=== PATIENT | female | born 1945 | race Caucasian/White ===

== ENCOUNTER 2018-09-09 19:02 | Inpatient (IN) | payer MEDICARE ==
[~2018-09-09] VITALS: Ht 157.5 cm; Wt 109.8 kg
--- NOTE | ~2018-09-09 | EEG ---
[address] [address] EEG STUDY REPORT Name: QIANA DRAKE Room: [address] IN M.R.#: [id number] Admission: 09/09/18 Attend Phys: Orion Leon MD Discharge: Date of : 47 Report #: [id number] THIS REPORT FOR: //name// CC: Orion Maciel DATE OF EE09/11/2018 This patient is having paresthesias, which are episodic. EEG is being done to evaluate the possibility of seizure. EEG was done by placing the electrode by standard 10-20 system of electrode placement. Both referential and sequential montages were used for recording. Background activity in this patient's EEG is about 9 Hz and 30 microvolt. It is a symmetrical activity. The patient went to sleep that is associated with bilaterally symmetrical sleep spindle and vertex sharp waves. Amplitude is slightly asymmetrical, but slightly higher on the right side, but that is considered a physiological variation. Throughout the record, no active epileptiform activity was noticed. IMPRESSION: This patient's EEG is unremarkable. By: [id number]-Paul Avendano MD /nt
[~2018-09-09 19:02] MED LIST: ASPIR 8181 MG PO; ATORVASTATIN CA40 MG PO; LEVAQUIN 500 M500 M2 PO; LOPRESSOR50 PO; NITROGLYCERIN0.4 MG SUBLING; PREDNISONE 10 M10 MG PO; VENTOLIN HFA 1818 GM INH; VITAMINS A & D1 EACH PO
[2018-09-09] MEDS ORDERED: LISINOPRIL20 MG PO (19:11)
[2018-09-09] MEDS ORDERED: LOVASTATIN 20 M20 MG PO (19:11)
[2018-09-09 19:12] VITALS: BP 170/111; BP 224/111
[2018-09-09 19:43] LABS: POC CA IONIZED 4.7 mg/dL (4.5-5.3); POC CREATININE 0.8 mg/dL (0.6-1.3); POC POTASSIUM 3.5 mmol/L (3.5-4.9)
[2018-09-09 19:45] LABS: ABSOLUTE EOSINOPHILS 0.1 thou/uL (0.0-0.7); ABSOLUTE LYMPHOCYTES 1.2 thou/uL (0.8-5.3); ABSOLUTE MONOCYTES 0.3 thou/uL (0.0-1.2); BASOPHILS 0.7 %; EOSINOPHILS 1.6 %; HEMATOCRIT 44.6 % (37.0-47.0); HEMOGLOBIN 14.9 gm/dL (12.0-15.0); LYMPHOCYTES 26.8 %; MCH 29.7 pg (26.0-34.0); MCHC 33.5 g/dL (28.0-37.0); MCV 88.8 fL (80.0-100.0); MONOCYTES 6.7 %; MPV 9.6 fl. (7.2-11.1); NUCLEATED RBCS 0 /100WBC; PLATELET COUNT* 174 thou/uL (150-400); POLYS 64.2 %; RBC 5.03 mil/uL (4.20-5.00); RDW-CV 14.1 % (10.5-14.5); WBC 4.6 thou/uL (4.0-11.0)
[2018-09-09 19:53] LABS: ANION GAP 10 mmol/L (7-16); APTT 28.9 Seconds (25.0-31.3); BUN 13 mg/dL (7-18); CALCIUM 9.7 mg/dL (8.5-10.1); CHLORIDE 100 mmol/L (98-107); CO2 28 mmol/L (21-32); CREATININE 0.9 mg/dL (0.6-1.3); GLUCOSE 146 mg/dL (70-99); POTASSIUM 3.6 mmol/L (3.5-5.1); PROTIME 10.3 Seconds (9.20-11.50); SODIUM 138 mmol/L (136-145)
[2018-09-09 20:00] LABS: ALBUMIN 3.7 g/dL (3.4-5.0); ALKALINE PHOSPHATASE 163 U/L (46-116); SGOT 163 U/L (15-37); SGPT 145 U/L (30-65); TOTAL BILIRUBIN 0.4 mg/dL (<0.1-1.0); TOTAL PROTEIN 8.5 g/dL (6.4-8.2); TROPONIN-I LEVEL <0.06 ng/mL (<0.06)
[2018-09-09 22:00] VITALS: BP 186/63
[2018-09-09 22:13] VITALS: BP 134/53
[2018-09-10 03:30] LABS: ALKALINE PHOSPHATASE 132 U/L (46-116); ANION GAP 7 mmol/L (7-16); BUN 12 mg/dL (7-18); CALCIUM 8.7 mg/dL (8.5-10.1); CHLORIDE 101 mmol/L (98-107); CHOLESTEROL 232 mg/dL (<200); CO2 29 mmol/L (21-32); CREATININE 0.9 mg/dL (0.6-1.3); GLUCOSE 169 mg/dL (70-99); HDL CHOLESTEROL 34 mg/dL (>40); LDL CHOLESTEROL 170 mg/dL (<100); POTASSIUM 3.8 mmol/L (3.5-5.1); SGOT 118 U/L (15-37); SGPT 113 U/L (30-65); SODIUM 137 mmol/L (136-145); TC:HDL 6.8 Ratio (Not establshd); TOTAL BILIRUBIN 0.3 mg/dL (<0.1-1.0); TOTAL PROTEIN 6.4 g/dL (6.4-8.2); TRIGLYCERIDE 140 mg/dL (<150); VLDL 28 mg/dL (<40)
[2018-09-10 03:31] LABS: SERUM ASSESSMENT CLEAR
[2018-09-10 04:00] VITALS: BP 113/54
[2018-09-10 07:59] VITALS: BP 166/76
--- NOTE | 2018-09-10 10:25 | EKG ---
[place] [address] ELECTROCARDIOGRAM REPORT Name: NOELLEQIANA KAY Room: [place] [address] ADM IN .R.#: [id number] Admission: 09/09/18 Attend Phys: Orion Leon MD Discharge: Date of : 47 Report #: [id number] THIS REPORT FOR: //name// [facility] ED Test Date: 2018-09-09 Test Time: 19:12:38 Pat Name: QIANA DRAKE Department: Room: [place] [address] Gender: F Office Rental Clerk: REECE : 1945 Requested By: Yoan Minor Order Number: [id number] Reading MD: Melo Huff Measurements Intervals [place] Rate: 93 P: 52 [place]: 211 QRS: 14 QRSD: 106 T: 101 QT: 368 QTc: 458 Interpretive Statements Sinus rhythm Ventricular premature complex LVH with secondary repolarization abnormality Inferior infarct, old Compared to ECG 03/03/2015 07:37:56 Ventricular premature complex(es) now present T-wave abnormality no longer present Possible ischemia no longer present Prolonged QT interval no longer present Electronically Signed On 09-10-2018 10:25:21 RADIO PRODUCER by Melo Hfuf [email or web address] <ELECTRONICALLY SIGNED> By: Melo Huff MD, FACC 09/10/18 1025 11 11 Melo Huff MD, FACC /EPI
[2018-09-10] MEDS ORDERED: MINOCIN50 MG PO (14:37)
[2018-09-10] MEDS ORDERED: LIPITOR 20 MG T20 M1 PO (14:38)
[2018-09-10 14:39] VITALS: BP 166/76
[2018-09-10 15:20] VITALS: BP 177/91
[2018-09-11 09:10] LABS: GLYCOHEMOGLOBIN (HGB A1C) 6.3 % (4.8-5.6)
--- NOTE | 2018-09-11 17:48 | CON ---
[address] [address] CONSULTATION Name: QIANA DRAKE Room: [address] IN M.R.#: [id number] Admission: 09/09/18 Attend Phys: Orion Leon MD Discharge: 09/10/18 Date of : 47 Report #: [id number] THIS REPORT FOR: //name// CC: Orion Maciel DATE OF SERVICE: 09/10/2018 NEUROLOGY CONSULT HISTORY OF PRESENT ILLNESS: The patient states that yesterday she had several episodes of tingling of the left hand and tongue. She had approximately 3 of these. Then, when she had come to the Emergency Room, she had an intense episode of tingling involving the entire left side of her body. Overall, the patient had approximately 4 or 5 of these episodes. In the Emergency Room, the patient's blood pressure was noted to be elevated. Her blood pressure was as high as 224/111. Today, the patient states that she is back to normal. Yesterday, she had a CT scan of the head demonstrating scattered microvascular disease and a CTA of the head and neck, which demonstrated atherosclerotic changes, more so on the right than the left. The patient also had high-grade stenosis of the left internal carotid artery. PAST MEDICAL HISTORY: Coronary artery disease, congestive heart failure, myocardial infarction, hypertension, hyperlipidemia. PAST SURGICAL HISTORY: Cardiac stents, cholecystectomy. MEDICATIONS: At home, aspirin 81 mg daily, lovastatin 20 mg daily, lisinopril 15 mg daily. ALLERGIES: None. PHYSICAL EXAMINATION: VITAL SIGNS: Temperature 36.7, pulse rate 68, respiratory rate 18, blood pressure 166/76, bedside pulse oximetry 92% on 2 liters nasal cannula. NEUROLOGIC: Cranial nerves 2-12 are grossly intact. Motor exam demonstrates symmetrical strength in all 4 extremities with tone and bulk normal. Reflexes are symmetrical throughout. Coordination demonstrates intact yepyyi-oh-vzni. Gait was not tested. LABORATORY DATA: Hematology: White blood cell count 4.6, hemoglobin 14.9, hematocrit 44.6, platelet count 174,000. INR 1. Urinalysis was not done. Chemistry: Sodium 137, potassium 3.8, chloride 101, carbon dioxide 29, BUN 12, creatinine 0.7, GFR 62, glucose 169. Hemoglobin A1c pending. Calcium 8.7, [place] [address] CONSULTATION Name: QIANA DRAKE Room: [address]#: [id number] Admission: 09/09/18 Attend Phys: Orion Leon MD Discharge: 09/10/18 Date of : 47 Report #: [id number] total bilirubin 0.3, AST 118, ALT 113, alkaline phosphatase 132, total protein 6.4, albumin 3. Triglycerides 140, cholesterol 232, LDL cholesterol 170, HDL cholesterol 34. IMAGING STUDIES: As noted in the history. IMPRESSION: This patient has had several episodes consistent with transient ischemic attack. She has left carotid artery stenosis, which unfortunately does not correlate with her symptoms. For this patient I would recommend an MRI of the head along with MRA of the head and neck to see if she has perhaps a stroke on the right side, for example, in the parietal lobe. These episodes of paresthesias could possibly be seizures. An EEG has been ordered. At this point, I would not make any changes to the patient's medication. Depending upon the results of the MRA, the patient may need a Vascular Surgery consult. I thank you for your kind referral of this patient. <ELECTRONICALLY SIGNED> By: Sherrie Ram DO 09/11/18 1748 1009 2110Sherrie Ram DO /nt
== END 2018-09-10 15:27 | disposition home or self-care (01) | DRG 69 ==
LOC: M.ERS 19:02 → M.2W 20:35 → M.TBA-ER 20:35 → M.2W 22:55
PROVIDERS: Emergency Medicine Emergency Medical Services; ADMIT Internal Medicine
DX: G45.9 Transient cerebral ischemic attack, unspecified (principal); I16.1 Hypertensive emergency; Z68.41 Body mass index [BMI] 40.0-44.9, adult; E66.01 Morbid (severe) obesity due to excess calories; E78.00 Pure hypercholesterolemia, unspecified; I50.9 Heart failure, unspecified; I11.0 Hypertensive heart disease with heart failure; G47.30 Sleep apnea, unspecified; R73.9 Hyperglycemia, unspecified; I25.10 Atherosclerotic heart disease of native coronary artery without angina pectoris; Z71.3 Dietary counseling and surveillance; I25.2 Old myocardial infarction; Z95.5 Presence of coronary angioplasty implant and graft; Z87.891 Personal history of nicotine dependence; Z90.49 Acquired absence of other specified parts of digestive tract; Z79.82 Long term (current) use of aspirin; Z79.899 Other long term (current) drug therapy

== ENCOUNTER 2018-10-28 20:56 | Emergency (ER) | payer MEDICARE ==
[~2018-10-28] VITALS: Ht 157.5 cm; Wt 105.2 kg
[~2018-10-28 20:56] MED LIST changes: +LIPITOR 20 MG T20 M1 PO; +LISINOPRIL20 MG PO; +LOVASTATIN 20 M20 MG PO; +MINOCIN50 MG PO
[2018-10-28 21:37] LABS: ABSOLUTE EOSINOPHILS 0.1 thou/uL (0.0-0.7); ABSOLUTE LYMPHOCYTES 0.9 thou/uL (0.8-5.3); ABSOLUTE MONOCYTES 0.3 thou/uL (0.0-1.2); ABSOLUTE NEUTROPHILS 2.5 thou/uL (1.6-8.1); BASOPHILS 1.3 %; EOSINOPHILS 2.4 %; HEMATOCRIT 42.2 % (37.0-47.0); HEMOGLOBIN 14.3 gm/dL (12.0-15.0); LYMPHOCYTES 24.6 %; MCHC 33.8 g/dL (28.0-37.0); MCV 88.6 fL (80.0-100.0); MONOCYTES 6.6 %; NUCLEATED RBCS 0 /100WBC; PLATELET COUNT* 141 thou/uL (150-400); POLYS 65.1 %; RBC 4.76 mil/uL (4.20-5.00); RDW-CV 14.4 % (10.5-14.5); WBC 3.9 thou/uL (4.0-11.0)
[2018-10-28 21:50] LABS: ANION GAP 3 mmol/L (7-16); BUN 15 mg/dL (7-18); CALCIUM 9.1 mg/dL (8.5-10.1); CHLORIDE 101 mmol/L (98-107); CO2 32 mmol/L (21-32); CREATININE 0.9 mg/dL (0.6-1.3); GLUCOSE 175 mg/dL (70-99); POTASSIUM 4.8 mmol/L (3.5-5.1); SODIUM 136 mmol/L (136-145)
[2018-10-28 21:53] LABS: PROTIME 10.2 Seconds (9.20-11.50)
[2018-10-28 22:01] LABS: ALBUMIN 3.4 g/dL (3.4-5.0); ALKALINE PHOSPHATASE 194 U/L (46-116); NT-PRO BRAIN NAT PEPTIDE 253 pg/mL (<300); SGOT 104 U/L (15-37); SGPT 97 U/L (30-65); TOTAL BILIRUBIN 0.5 mg/dL (<0.1-1.0); TOTAL PROTEIN 8.2 g/dL (6.4-8.2); TROPONIN-I LEVEL <0.06 ng/mL (<0.06)
[2018-10-28 23:12] VITALS: BP 165/58
--- NOTE | 2018-10-29 15:38 | EKG ---
[place] [address] ELECTROCARDIOGRAM REPORT Name: NOELLEQIANA WHEELER Room: [facility]#: [id number] Admission: 10/28/18 Attend Phys: Discharge: 10/28/18 Date of : 47 Report #: [id number] THIS REPORT FOR: //name// [facility] ED Test Date: 2018-10-28 Test Time: 21:05:18 Pat Name: QIANA DRAKE Department: Room: Gender: F Elevated Guard: SANDRA : 1945 Requested By: Linda Townsend Order Number: [id number] MD: Melo Huff Measurements Intervals [place] Rate: 92 P: 62 [place]: 212 QRS: 24 QRSD: 105 T: 130 QT: 375 QTc: 464 Interpretive Statements Sinus rhythm Borderline prolonged NC interval Probable LVH with secondary repol abnrm Consider inferior infarct Compared to ECG 09/09/2018 19:12:38 Ventricular premature complex(es) no longer present Myocardial infarct finding still present Electronically Signed On 10-29-2018 15:38:18 BUS DRIVER/MONITOR by Melo Huff [email or web address] <ELECTRONICALLY SIGNED> By: Melo Huff MD, FACC 10/29/18 1538 Melo Huff MD, FAC /EPI
== END 2018-10-28 23:13 | disposition home or self-care (01) ==
LOC: M.ERS 20:56
PROVIDERS: Personal Emergency Response Attendant
DX: R42 Dizziness and giddiness (principal); R51 Headache; I11.0 Hypertensive heart disease with heart failure; I50.9 Heart failure, unspecified; G47.30 Sleep apnea, unspecified; Z95.5 Presence of coronary angioplasty implant and graft

== ENCOUNTER 2018-11-19 19:07 | Emergency (ER) | payer MEDICARE ==
[~2018-11-19] VITALS: Ht 157.5 cm; Wt 109.8 kg
[2018-11-19 19:39] LABS: ABSOLUTE EOSINOPHILS 0.1 thou/uL (0.0-0.7); ABSOLUTE LYMPHOCYTES 1.2 thou/uL (0.8-5.3); ABSOLUTE MONOCYTES 0.3 thou/uL (0.0-1.2); ABSOLUTE NEUTROPHILS 2.9 thou/uL (1.6-8.1); BASOPHILS 0.8 %; EOSINOPHILS 1.7 %; HEMATOCRIT 43.2 % (37.0-47.0); HEMOGLOBIN 14.5 gm/dL (12.0-15.0); LYMPHOCYTES 25.6 %; MCHC 33.6 g/dL (28.0-37.0); MCV 89.5 fL (80.0-100.0); MONOCYTES 7.7 %; MPV 9.2 fl. (7.2-11.1); NUCLEATED RBCS 0 /100WBC; PLATELET COUNT* 148 thou/uL (150-400); POLYS 64.2 %; RBC 4.83 mil/uL (4.20-5.00); RDW-CV 14.2 % (10.5-14.5); WBC 4.5 thou/uL (4.0-11.0)
[2018-11-19 19:46] LABS: CALCIUM 9.7 mg/dL (8.5-10.1); POTASSIUM 3.5 mmol/L (3.5-5.1)
[2018-11-19 19:46] LABS: URINE BILIRUBIN NEGATIVE (Negative); URINE BLOOD NEGATIVE (Negative); URINE CLARITY CLEAR; URINE COLOR YELLOW; URINE GLUCOSE-RANDOM NEGATIVE (Negative); URINE KETONES NEGATIVE (Negative); URINE LEUKOCYTES-REFLEX NEGATIVE (Negative); URINE NITRITE-REFLEX NEGATIVE (Negative); URINE PROTEIN TRACE (Negative); URINE UROBILINOGEN 0.2 E.U./dl (0.2-1.0)
[2018-11-19 19:50] LABS: PROTIME 10.7 Seconds (9.20-11.50)
[2018-11-19 19:51] LABS: ALBUMIN 3.9 g/dL (3.4-5.0); TOTAL BILIRUBIN 0.6 mg/dL (<0.1-1.0); TOTAL PROTEIN 8.6 g/dL (6.4-8.2)
[2018-11-19 19:59] LABS: NT-PRO BRAIN NAT PEPTIDE 389 pg/mL (<300); TROPONIN-I LEVEL <0.06 ng/mL (<0.06)
[2018-11-19] MEDS ORDERED: CLONIDINE0.1 PO (22:28)
[2018-11-19 22:55] VITALS: BP 174/67
--- NOTE | 2018-11-20 16:29 | EKG ---
[place] [address] ELECTROCARDIOGRAM REPORT Name: NOELLEQIANA LIAM Room: [facility]#: [id number] Admission: 11/19/18 Attend Phys: Discharge: 11/19/18 Date of : 47 Report #: [id number] THIS REPORT FOR: //name// [facility] ED Test Date: 2018-11-19 Test Time: 19:36:21 Pat Name: QIANA DRAKE Department: Room: Gender: F Gasket Maker: MIGUEL : 1945 Requested By: Cara Gloria Order Number: [id number] MD: Micky Hoyt Measurements Intervals [place] Rate: 85 P: 45 [place]: 195 QRS: 8 QRSD: 105 T: 148 QT: 385 QTc: 458 Interpretive Statements Sinus rhythm Multiple unifocal ventricular premature complexes LVH with secondary repolarization abnormality Inferior infarct, old Compared to ECG 10/28/2018 21:05:18 Ventricular premature complex(es) now present Myocardial infarct finding still present Electronically Signed On 11-20-2018 16:29:32 RETAIL MORTGAGE BANKER by Micky Hoyt [email or web address] <ELECTRONICALLY SIGNED> By: Micky Hoyt MD, FACC 11/20/18 1629 35 35 Micky Hoyt MD, FACC /EPI
== END 2018-11-19 22:45 | disposition home or self-care (01) ==
LOC: M.ERS 19:07
PROVIDERS: Emergency Medicine
DX: I16.0 Hypertensive urgency (principal); I11.0 Hypertensive heart disease with heart failure; I50.9 Heart failure, unspecified; I25.2 Old myocardial infarction; G47.30 Sleep apnea, unspecified; Z95.5 Presence of coronary angioplasty implant and graft

== ENCOUNTER 2019-09-07 22:48 | Inpatient (IN) | payer MEDICARE ==
[~2019-09-07] VITALS: Ht 157.5 cm; Wt 111.0 kg
--- NOTE | ~2019-09-07 | EKG ---
[place] [address] ELECTROCARDIOGRAM REPORT Name: QIANA DRAKE Room: [address] ADM IN M.R.#: [id number] Admission: 09/08/19 Attend Phys: Jessenia Sharma MD Discharge: Date of : 47 Report #: [id number] THIS REPORT FOR: //name// [facility] Test Date: 2019-09-08 Test Time: 20:23:04 Pat Name: QIANA DRAKE Department: Room: [address] Gender: F Graphic Editor: : 1945 Requested By: Jessenia Sharma Order Number: [id number] Reading MD: Measurements Intervals [place] Rate: 101 P: 75 [place]: 205 QRS: 34 QRSD: 111 T: 185 QT: 360 QTc: 467 Interpretive Statements Sinus tachycardia Multiple ventricular premature complexes Abnormal inferior Q waves Repol abnrm suggests ischemia, anterolateral Baseline wander in lead(s) V4 Compared to ECG 11/19/2018 19:36:21 Inferior Q waves now present Q waves now present Possible ischemia now present Sinus rhythm no longer present Left ventricular hypertrophy no longer present Myocardial infarct finding no longer present [email or web address] By: 22 22 Epiphany Epiphany, /RONNI
[~2019-09-07 22:48] MED LIST changes: +CLONIDINE0.1 PO
[2019-09-07 22:50] VITALS: BP 202/82
[2019-09-07] MEDS ORDERED: FISH OIL 1,0001 EAC9 PO (22:57)
[2019-09-07 23:12] LABS: ABSOLUTE EOSINOPHILS 0.1 thou/uL (0.0-0.7); ABSOLUTE LYMPHOCYTES 0.9 thou/uL (0.8-5.3); ABSOLUTE MONOCYTES 0.4 thou/uL (0.0-1.2); ABSOLUTE NEUTROPHILS 2.4 thou/uL (1.6-8.1); BASOPHILS 0.9 %; EOSINOPHILS 2.1 %; HEMATOCRIT 37.1 % (37.0-47.0); HEMOGLOBIN 12.6 gm/dL (12.0-15.0); LYMPHOCYTES 23.9 %; MCV 88.2 fL (80.0-100.0); MONOCYTES 10.3 %; MPV 8.9 fl. (7.2-11.1); NUCLEATED RBCS 0 /100WBC; PLATELET COUNT* 118 thou/uL (150-400); POLYS 62.8 %; RBC 4.21 mil/uL (4.20-5.00); RDW-CV 14.4 % (10.5-14.5); WBC 3.8 thou/uL (4.0-11.0)
[2019-09-07 23:20] LABS: CALCIUM 8.5 mg/dL (8.5-10.1); CREATININE 1.1 mg/dL (0.6-1.3); POTASSIUM 3.7 mmol/L (3.5-5.1)
[2019-09-07 23:22] LABS: APTT 28.5 Seconds (25.0-31.3); INR 1.1; PROTIME 10.9 Seconds (9.20-11.50)
[2019-09-07 23:31] LABS: ALBUMIN 3.3 g/dL (3.4-5.0); TOTAL BILIRUBIN 0.5 mg/dL (<0.1-1.0); TOTAL PROTEIN 7.9 g/dL (6.4-8.2)
[2019-09-08] VITALS (8 sets, daily range): BP systolic 129–204; BP diastolic 51–81
[2019-09-08 00:24] LABS: BE 1.4 mmol/L (-2 to +3); PCO2 37.6 mmHg (35.0-45.0); PO2 61.7 mmHg (75.0-100.0); pH 7.445 (7.340-7.450)
--- NOTE | 2019-09-08 08:33 | NUR ---
REPORT RECIVED FROM ER. PT ORIENTED TO ROOM, CALL LIGHT SHOWN, FALL AGREEMENT WENT OVER, PT STATED UNDERSTANDING. ADMISSION DOCUMENTED. MEDS GIVEN PER E-MAR. IV'S PATENT. WILL CONTINUE WITH PLAN OF CARE.
[2019-09-08] MEDS ORDERED: CLONIDINE HCL0.2 M2 PO (11:12)
--- NOTE | 2019-09-08 19:23 | NUR ---
RECEIVED REPORT. ASSUMED CARE OF PT MASSIMO 0730. PT A&OX4, VSS, A BIT TACHY AND FLUSHED THIS EVEING AFTER HER BREATHING TREATMENT - TREATMENTS CHANGED TO XOPENEX PRN PER ORDERS. CARDIAC MONIOR IN PLACE TRACING SR TO ST WITH 1ST DEGREE AND PVC'S THIS SHIFT. AM ASSESSMENT AND VITALS COMPLETED CHARTED. FAMILY VISITED THIS AFTERNOON. PT UP WITH SBA AND CANE MULTIPLE TIMES TO VOID AND HAVE A BM. APPETITE GOOD. PT O2 SATS >90% ON 2L PER NC THIS SHIFT. PT CONTINUES TO FEEL SOA AND EXHAUSTED AFTER AFTER MINIMAL EXERTION, THOUGH O2 SATS REMAINED >90% WITH ACTIVITY. PT'S HOME MEDS IN HER PT BIN, VERIFIED AND READY TO GIVE. PT CURRENTLY WATCHING TV IN BED. CALL LIGHT IS WITHIN REACH. HOURLY ROUNDING PERFORMED. FALL PRECAUTIONS IN PLACE.
[2019-09-09] VITALS: BP 136/59
[2019-09-09 04:00] VITALS: BP 182/56
--- NOTE | 2019-09-09 05:24 | NUR ---
ASSUMED PT CARE AT APPROX 1930. PT IS AWAKE AND ORIENTED X4. VSS ON 2L OF O2/NC. CHEESE SPECIALIST IN PLACE TRACING SR w/ 1D AVB. PT REFUSED IV SOLUMEDROL, SAYING "IT MAKES ME FEEL SICK", EDUCATION GIVEN ON SIDE EFFECTS AND THE IMPORTANCE OF NOT MISSING A DOSE. HIGH FALL PRECAUTIONS IN PLACE. CALL LIGHT WITHIN REACH. HOURLY ROUNDING DONE FOR SAFETY.
[2019-09-09 08:00] VITALS: BP 145/64
--- NOTE | 2019-09-09 09:22 | NUR ---
Pt is A&O. Resides at home with her sister. Independent, she completes the cooking, sister cleans and drives. Pt uses a cane primarily, but also has a walker. Pt wears a cpap at night. Hx of HH. No hx of SNF. Hx of cardiac rehab. Goal is home at tn, no needs anticipated. Following.
[2019-09-09 12:04] VITALS: BP 138/65
--- NOTE | 2019-09-09 18:32 | NUR ---
ASSUSSMED CARE OF PT APPROX 0730. REASSESSMENT COMPLETED CHARTED. MEDICATIONS GIVEN CHARTED. DISCUSSED MEDICATIONS WITH PT, PT VERBALIZED UNDERSTANDING. PT CHANGED TO MEDICAL SURGICAL STATUS THIS AFTERNOON. PT CALLS OUT FOR NEEDS. SAFTEY PRECAUTIONS UTILIZED, HOURLY ROUNDING FOR NEEDS AND SAFTEY.
[2019-09-09 20:30] VITALS: BP 175/76
--- NOTE | 2019-09-10 07:29 | NUR ---
PT SLEPT FAIRLY WELL OVERNIGHT, AWAKENED WITH CONGESTED PRODUCTIVE "CHOKEY" COUGH AND REQUESTED RT TX- GIVEN. RAC SL, LFA SL. ABX AND SOLUMEDROL GIVEN ORDERED. UP WITH SBA AND CANE TO BR TO VOID. O2 2L OVERNIGHT WHILE SLEEPING TO KEEP SATS 92%. TO HAVE REPEAT CXRAY TO DAY. ABLE TO USE CALL LITE AND MAKE NEEDS KNOWN.
[2019-09-10 07:52] VITALS: BP 145/70
--- NOTE | 2019-09-10 10:43 | EKG ---
[place] [address] ELECTROCARDIOGRAM REPORT Name: QIANA DRAKE Room: [address] ADM IN ..#: [id number] Admission: 09/08/19 Attend Phys: Jessenia Sharma MD Discharge: Date of : 47 Report #: [id number] THIS REPORT FOR: //name// [facility] ED Test Date: 2019-09-07 Test Time: 23:08:12 Pat Name: QIANA DRAKE Department: Room: [facility] Gender: F Residential Child Care Counselor: : 1945 Requested By: Prashant Sellers Order Number: [id number] MD: Micky Hoyt Measurements Intervals [place] Rate: 88 P: 62 [place]: 194 QRS: 28 QRSD: 108 T: 169 QT: 340 QTc: 412 Interpretive Statements Sinus tachycardia Ventricular bigeminy Incomplete left bundle branch block LVH with secondary repolarization abnormality Inferior infarct, old Compared to ECG 11/19/2018 19:36:21 Left bundle-branch block now present Sinus rhythm no longer present Electronically Signed On 09-10-2019 10:42:55 DATA CONVERSION DEVELOPER by Micky Hoyt [email or web address] <ELECTRONICALLY SIGNED> By: Micky Hoyt MD, FACC 09/10/19 1042 2308 2308 Micky Hoyt MD, FAC /EPI
--- NOTE | 2019-09-10 10:51 | EKG ---
[place] [address] ELECTROCARDIOGRAM REPORT Name: QIANA DRAKE Room: [address] ADM IN M.R.#: [id number] Admission: 09/08/19 Attend Phys: Jessenia Sharma MD Discharge: Date of : 47 Report #: [id number] THIS REPORT FOR: //name// [facility] Test Date: 2019-09-08 Test Time: 20:23:04 Pat Name: QIANA DRAKE Department: Room: [facility] Gender: F Housing Project Manager: : 1945 Requested By: Jessenia Sharma Order Number: [id number] MD: Micky Hoyt Measurements Intervals [place] Rate: 101 P: 75 [place]: 205 QRS: 34 QRSD: 111 T: 185 QT: 360 QTc: 467 Interpretive Statements Sinus tachycardia Ventricular premature complexes Inferior infarct, old, possible Repol abnrm suggests ischemia, anterolateral Baseline wander in lead(s) V4 Compared to ECG 11/19/2018 19:36:21 Inferior infarct now present Possible ischemia now present Sinus rhythm no longer present Electronically Signed On 09-10-2019 10:51:25 PLATE DRYING MACHINE TENDER by Micky Hoyt [email or web address] <ELECTRONICALLY SIGNED> By: Micky Hoyt MD, FACC 09/10/19 1051 22 22 Micky Hoyt MD, FACC /EPI
[2019-09-10] MEDS ORDERED: PREDNISONE 10 M10 MG PO (11:23)
[2019-09-10] MEDS ORDERED: LEVAQUIN 500 M500 M2 PO (11:23)
[2019-09-10 15:58] VITALS: BP 159/73
--- NOTE | 2019-09-10 18:24 | NUR ---
ASSESSMENT COMPLETE. PT REPORTS INCREASED WEAKNESS. PT PLAN TO DC TOMORROW IF COUGH AND STRENGTH IMPROVES. CXR THIS AM. PT IS ON 3L PER NC WHEN SLEEPING DUE TO SLEEP APNEA. PT IS ON 94% ON ROOM AIR WHILE AWAKE. PT IS FALL RISK, UP WITH ONE ASSIST WITH CANE. PT DENIES PAIN AND N/V. TOLERATING MEALS. NEW MEDICATION ORDERED FOR COUGH. PT HAS NO OTHER CONCERNS AT THIS TIME. SEE ASSESSMENT AND VITALS FOR OTHER DETAILS. CALL LIGHT WITHIN REACH, WILL CONTINUE PLAN OF CARE
[2019-09-10 20:20] VITALS: BP 152/65
--- NOTE | 2019-09-11 05:16 | NUR ---
PT SLEPT OFF AND ON OVERNIGHT, COUGH MED GIVEN AT HS WITH FAIR RESULT, GIVEN AGAIN IN THE MIDDLE OF THE NIGHT FOR CONGESTED PROD COUGH. RT TX GIVEN X1 THIS SHIFT. RAC SL, LFA SL, ABX GIVEN ORDERED. O2 2L SATS 96%. USING CALL LITE APPROPRIATELY FOR SBA WITH CANE TO BR TO VOID, SCOTT. NO LABS THIS MORNING. POSSIBLE DC TODAY. SOLUMEDROL IV GIVEN ORDERED THIS SHIFT.
[2019-09-11 07:55] VITALS: BP 151/75
[2019-09-11 12:51] VITALS: BP 152/65
[2019-09-11] MEDS ORDERED: CODITUSSIN AC473 ML PO (12:55)
--- NOTE | 2019-09-11 14:00 | NUR ---
PATIENT DISCHARGED TO HOME. DISCHARGE PAPERS REVIEWED AND SIGNED. PRESRIPTIONS AND INFORMATION SHEETS GIVEN. IV'S REMOVED. PATIENT DENIES ANY FURTHER NEEDS. PATIENT TAKEN BY WHEELCHAIR TO EXIT. LEFT WITH FRIEND.
== END 2019-09-11 14:00 | disposition home or self-care (01) | DRG 177 ==
LOC: M.ERS 22:48 → M.TBA-ER 09-08 00:03 → M.2W 09-08 00:03 → M.3W 09-09 19:28
PROVIDERS: Family Medicine; ADMIT Internal Medicine
DX: J15.6 Pneumonia due to other Gram-negative bacteria (principal); J96.01 Acute respiratory failure with hypoxia; J44.1 Chronic obstructive pulmonary disease with (acute) exacerbation; I50.22 Chronic systolic (congestive) heart failure; I13.0 Hypertensive heart and chronic kidney disease with heart failure and stage 1 through stage 4 chronic kidney disease, or unspecified chronic kidney disease; J44.0 Chronic obstructive pulmonary disease with (acute) lower respiratory infection; I50.9 Heart failure, unspecified; I25.10 Atherosclerotic heart disease of native coronary artery without angina pectoris; G47.33 Obstructive sleep apnea (adult) (pediatric); I16.0 Hypertensive urgency; N18.9 Chronic kidney disease, unspecified; Z95.5 Presence of coronary angioplasty implant and graft; I25.2 Old myocardial infarction; Z86.73 Personal history of transient ischemic attack (TIA), and cerebral infarction without residual deficits; Z95.1 Presence of aortocoronary bypass graft; Z82.49 Family history of ischemic heart disease and other diseases of the circulatory system; Z87.891 Personal history of nicotine dependence; Z95.820 Peripheral vascular angioplasty status with implants and grafts; Z79.82 Long term (current) use of aspirin; Z79.899 Other long term (current) drug therapy

== ENCOUNTER 2020-09-01 23:53 | Inpatient (IN) | payer MEDICARE ==
[~2020-09-01] VITALS: Ht 170.2 cm; Wt 130.6 kg
--- NOTE | ~2020-09-01 | PROC ---
[address] [address] PROCEDURE REPORT Name: QIANA DRAKE Room: [address] IN M.R.#: [id number] Admission: 09/02/20 Attend Phys: Orion Leon MD Discharge: 09/09/20 Date of : 47 Report #: [id number] THIS REPORT FOR: //name// cc: Marcy Maciel Maggie M. DO ~ For GI report, please see the Provation report in Perceptive 7 content. By: [facility]3Medical Records Staff [facility] /[place]ERT
[~2020-09-01 23:53] MED LIST changes: +CLONIDINE HCL0.2 M2 PO; +CODITUSSIN AC473 ML PO; +FISH OIL 1,0001 EAC9 PO
[2020-09-02] VITALS (38 sets, daily range): BP systolic 85–1144; BP diastolic 29–65
[2020-09-02 00:45] LABS: BE -5.7 mmol/L (-2 to +3)
[2020-09-02 00:48] LABS: PCO2 75.4 mmHg (35.0-45.0); PO2 217.4 mmHg (75.0-100.0); pH 7.126 (7.340-7.450)
[2020-09-02 00:52] LABS: ABSOLUTE EOSINOPHILS 0.2 thou/uL (0.0-0.7); ABSOLUTE LYMPHOCYTES 2.9 thou/uL (0.8-5.3); ABSOLUTE MONOCYTES 0.3 thou/uL (0.0-1.2); ABSOLUTE NEUTROPHILS 3.4 thou/uL (1.6-8.1); BASOPHILS 0.5 %; EOSINOPHILS 2.4 %; HEMATOCRIT 30.2 % (37.0-47.0); LYMPHOCYTES 42.5 %; MCH 22.2 pg (26.0-34.0); MCHC 29.9 g/dL (28.0-37.0); MCV 74.4 fL (80.0-100.0); MONOCYTES 4.1 %; NUCLEATED RBCS 0 /100WBC; PLATELET COUNT* 174 thou/uL (150-400); POLYS 50.5 %; RBC 4.06 mil/uL (4.20-5.00); RDW-CV 18.1 % (10.5-14.5); WBC 6.7 thou/uL (4.0-11.0)
[2020-09-02 00:56] LABS: CALCIUM 7.9 mg/dL (8.5-10.1); CREATININE 1.2 mg/dL (0.6-1.3); POTASSIUM 3.5 mmol/L (3.5-5.1)
[2020-09-02 01:01] LABS: MAGNESIUM 2.1 mg/dL (1.8-2.4); TOTAL BILIRUBIN 0.4 mg/dL (<0.1-1.0); TOTAL PROTEIN 6.9 g/dL (6.4-8.2)
[2020-09-02 01:03] LABS: APTT 22.2 Seconds (25.0-31.3); PROTIME 10.7 Seconds (9.20-11.50)
[2020-09-02 02:41] LABS: URINE BILIRUBIN NEGATIVE (Negative); URINE BLOOD 1+ (Negative); URINE CLARITY SL CLOUDY; URINE COLOR YELLOW; URINE GLUCOSE-RANDOM TRACE (Negative); URINE KETONES NEGATIVE (Negative); URINE LEUKOCYTES-REFLEX NEGATIVE (Negative); URINE NITRITE-REFLEX NEGATIVE (Negative); URINE PROTEIN 3+ (Negative); URINE SPECIFIC GRAVITY >= 1.030 (1.005-1.030); URINE UROBILINOGEN 0.2 E.U./dl (0.2-1.0)
[2020-09-02 04:49] LABS: CASTS None Seen /LPF (None Seen); SQUAMOUS NONE SEEN /LPF (0-3); URINE WBC-REFLEX 6-15 Few /HPF (0-5)
[2020-09-02 04:50] LABS: AMORPHOUS URATES Moderate /LPF (None Seen); URINE RBC 3-10 Few /HPF (0-2)
--- NOTE | 2020-09-02 07:48 | NUR ---
REPORT RECIEVED FROM ER. PT RECIEVED FROM CT INTO ROOM 4. CONSULT CALLED, ORDERS RECIEVED FROM DR OLEARY TO ADJUST VENTILATOR SETTINGS. IV'S PATENT, VERSED RUNNING CHARTED. CENTERAL LINE PLACED BY DR HODGE. ET TUBE REPLACED THIS SHIFT. SURGERY CONSULTED. NG TUBE IN PLACE.
--- NOTE | 2020-09-02 08:17 | NUR ---
SEE CHART VOR VITALS FROM [id number]. VSS.
[2020-09-02 08:59] LABS: BE -6.1 mmol/L (-2 to +3); PCO2 33.3 mmHg (35.0-45.0); PO2 68.7 mmHg (75.0-100.0); pH 7.364 (7.340-7.450)
[2020-09-02 09:53] LABS: % SATURATION 6 % (20-39); IRON 25 ug/dL (50-175)
--- NOTE | 2020-09-02 09:58 | NUR ---
PT CURRENTLY IN CT SCAN. EMERGENT CT SCAN OF CHEST ORDERED D/T CXR RECOMMENDATION R/T RT SUBCL CENTRAL LINE PLACEMENT. VSS. RT AT BS. PROPOFOL AND HEPARIN GTTS INFUSING. FENTANYL ADMIN PRIOR TO TRANSPORTATION FOR SEDATION PURPOSES. ATTEMPTING TO CONTACT RADIOLOGIST FOR STAT READ. RADHA RAM
[2020-09-02 10:53] LABS: HEMATOCRIT 25.2 % (37.0-47.0); HEMOGLOBIN 7.6 gm/dL (12.0-15.0)
--- NOTE | 2020-09-02 12:40 | 2DMMODE ---
[place] [address] 2 D/M-MODE ECHOCARDIOGRAM Name: QIANA DRAKE Room: [address] IN ..#: [id number] Admission: 09/02/20 Attend Phys: Orion Leon, Discharge: Date of : 47 Date of Service: 09/02/20 1240 Report #: [id number] THIS REPORT FOR: cc: Marcy Maciel Maggie M. DO Holkins, John M. MD [facility] ~ APPROVED REPORT Study performed: 09/02/2020 10:26:26 EXAM: Comprehensive 2D, Doppler, and color-flow Echocardiogram Patient Location: In-Patient Room #: 004 Status: routine BSA: 2.26 HR: 56 bpm BP: 121/51 mmHg Rhythm: NSR Other Information Technically limited study due to body habitus. Indications Dyspnea Echo Enhancing Agent Indication: Endocardial border delineation Agent(s) / Amount(s) Used: Agitated Saline 5 cc 2D Dimensions IVSd: 18.69 (7-11mm) LVOT Diam: 19.11 (18-24mm) LVDd: 54.26 mm PWd: 10.77 (7-11mm) Ascending Ao: 26.35 (22-36mm) LVDs: 38.14 (25-40mm) Aortic Root: 35.87 mm Volumes Left Atrial Volume (Systole) LA ESV Index: 42.20 mL/m2 Aortic Valve AoV Peak Samuel.: 1.78 m/s AO Peak Gr.: 12.74 mmHg LVOT Max P.64 mmHg AO Mean Gr.: 6.96 mmHg LVOT Mean P.70 [place] [address] 2 D/M-MODE ECHOCARDIOGRAM Name: QIANA DRAKE Room: [address] IN .R.#: [id number] Admission: 09/02/20 Attend Phys: Orion Leon, Discharge: Date of : 47 Date of Service: 09/02/20 1240 Report #: [id number] LVOT Max V: 0.95 m/s AO V2 VTI: 39.86 cm LVOT Mean V: 0.59 m/s NIYAH (VTI): 1.72 cm2 LVOT V1 VTI: 23.91 cm Mitral Valve E/A Ratio: 1.09 MV Decel. Time: 240.35 ms MV E Max Samuel.: 0.92 m/s MV PHT: 69.70 ms MVA (PHT): 3.16 cm2 TDI E/Lateral E': 15.33 E/Medial E': 15.33 Medial E' Samuel.: 0.06 m/s Lateral E' Samuel.: 0.06 m/s Pulmonary Valve PV Peak Samuel.: 1.01 m/s PV Peak Gr.: 4.12 mmHg Tricuspid Valve RAP Estimate: 5.00 mmHg TR Peak Gr.: 19.90 mmHg RVSP: 24.00 mmHg PA Pressure: 24.00 mmHg Left Ventricle The left ventricle is normal size. Regional wall motion abnormalities are noted with inferobasilar hypokinesis. Moderate proximal septal hypertrophy is present. Left ventricular systolic function is mildly decreased. LVEF is 50%. The left ventricular diastolic function is normal. Right Ventricle The right ventricle is normal size. The right ventricular systolic function is normal. Atria Left atrium is mildly dilated. The right atrium size is normal. Aortic Valve Mild aortic valve sclerosis. No aortic regurgitation is present. No hemodynamically significant valvular aortic stenosis. Mitral Valve Mild mitral annular calcification. Trace mitral regurgitation. No evidence [place] [address] 2 D/M-MODE ECHOCARDIOGRAM Name: QIANA DRAKE Room: [address] IN [facility]#: [id number] Admission: 09/02/20 Attend Phys: Orion Leon, Discharge: Date of : 47 Date of Service: 09/02/20 1240 Report #: [id number] Tricuspid Valve The tricuspid valve is normal in structure. Mild tricuspid regurgitation. No pulmonary hypertension. Pulmonic Valve The pulmonary valve is normal in structure. Trace pulmonic regurgitation. Great Vessels The aortic root is normal in size. IVC is normal in size and collapses >50% with inspiration. Pericardium There is no pericardial effusion. <Conclusion> The left ventricle is normal size. Moderate proximal septal hypertrophy is present. Left ventricular systolic function is mildly decreased. LVEF is 50%. The right ventricle is normal size. Left atrium is mildly dilated. The right atrium size is normal. Mild aortic valve sclerosis. No aortic regurgitation is present. No hemodynamically significant valvular aortic stenosis. Mild mitral annular calcification. Trace mitral regurgitation. No evidence of mitral valve stenosis. The tricuspid valve is normal in structure. IVC is normal in size and collapses >50% with inspiration. There is no pericardial effusion. Regional wall motion abnormalities are noted with inferobasilar hypokinesis. <ELECTRONICALLY SIGNED> By: Balwinder Heller MD, FACC 09/02/20 1240 1240 1240 Balwinder Heller MD, FACC /INF
[2020-09-02 12:49] LABS: CALCIUM 7.3 mg/dL (8.5-10.1); CREATININE 1.2 mg/dL (0.6-1.3); MAGNESIUM 1.8 mg/dL (1.8-2.4); POTASSIUM 4.2 mmol/L (3.5-5.1)
--- NOTE | 2020-09-02 13:17 | EKG ---
[place] [address] ELECTROCARDIOGRAM REPORT Name: QIANA DRAKEY Room: [address] ADM IN .R.#: [id number] Admission: 09/02/20 Attend Phys: Orion Leon, Discharge: Date of : 47 Date of Service: 09/02/20 0003 Report #: [id number] THIS REPORT FOR: //name// [facility] ED Test Date: 2020-09-02 Test Time: 00:03:34 Pat Name: QIANA DRAKE Department: Room: [facility] Gender: F School Bus Inspector: : 1945 Requested By: Linda Townsend Order Number: [id number] MD: Balwinder Heller Measurements Intervals [place] Rate: 110 P: 221 [place]: 135 QRS: 31 QRSD: 121 T: 204 QT: 363 QTc: 492 Interpretive Statements Supraventricular tachycardia of unclear mechanism Left bundle branch block Compared to ECG 09/08/2019 20:23:04 Left bundle-branch block now present Ventricular premature complex(es) no longer present Myocardial infarct finding no longer present Early repolarization no longer present Electronically Signed On 09-02-2020 13:17:28 SENIOR QUANTITY SURVEYOR by Balwinder Heller [email or web address] <ELECTRONICALLY SIGNED> By: Balwinder Heller MD, FACC 09/02/20 1317 0003 0003 Balwinder Heller MD, FAC /EPI
--- NOTE | 2020-09-02 15:47 | NUR ---
ICU rounds: Pt intubated and sedated, no weaning trials planned. Art line. Central line. Getting blood. On covid precautions, pending pcr. CM left for Pt's dtr, await call back
[2020-09-02 16:19] LABS: CHOLESTEROL 145 mg/dL (<200); HDL CHOLESTEROL 40 mg/dL (>40); LDL CHOLESTEROL 90 mg/dL (<100); TC:HDL 3.6 Ratio (Not establshd); TRIGLYCERIDE 75 mg/dL (<150); VLDL 15 mg/dL (<40)
[2020-09-02 16:20] LABS: SERUM ASSESSMENT Clear
[2020-09-02 17:25] LABS: BE -6.8 mmol/L (-2 to +3); PO2 107.4 mmHg (75.0-100.0); pH 7.392 (7.340-7.450)
[2020-09-02 18:07] LABS: HEMATOCRIT 25.2 % (37.0-47.0); HEMOGLOBIN 7.8 gm/dL (12.0-15.0)
[2020-09-02 18:14] LABS: CALCIUM 7.9 mg/dL (8.5-10.1); CREATININE 1.3 mg/dL (0.6-1.3); POTASSIUM 4.1 mmol/L (3.5-5.1)
--- NOTE | 2020-09-02 18:51 | NUR ---
PT CURRENTLY LYING IN BED W/ EYES CLOSED. RASS-2 AT THIS TIME. PROPOFOL AND VERSED GTTS INFUSING FOR SEDATION. ETT AT 23CM AT LIP. CONTINUE SAME VENT SETTINGS. LUNGS REMAIN COARSE W/ THICK BLOOD TINGED SPUTUM SUCTION FROM INLINE. RT TO OBTAIN SPUTUM SAMPLE FOR CULTURE. SLIGHTLY BLOOD TINGED ORAL SECRETIONS AT TIMES. SB TO SR ON MONITOR. EDEMA TO BLE. NG TO LT NARES @ 55CM TO LIS. BS ACTIVE. NO BM/PASSING FLATUS. [place] TO D/D. SCDS ON. HEPARIN GTT INFUSING PER PROTOCOL. RT RADIAL A LINE IN PLACE. RT SUBCL TL CL. FULL REPORT VERBALIZED TO SISTER, JEAN. Amanda MAY, RN
[2020-09-03] VITALS (24 sets, daily range): BP systolic 78–163; BP diastolic 37–66
[2020-09-03 00:23] LABS: HEMATOCRIT 24.9 % (37.0-47.0); HEMOGLOBIN 7.6 gm/dL (12.0-15.0)
[2020-09-03 02:06] LABS: GLYCOHEMOGLOBIN (HGB A1C) 5.9 % (4.8-5.6)
[2020-09-03 04:49] LABS: HEMATOCRIT 26.4 % (37.0-47.0); HEMOGLOBIN 8.3 gm/dL (12.0-15.0); MCH 23.3 pg (26.0-34.0); MCHC 31.2 g/dL (28.0-37.0); MCV 74.4 fL (80.0-100.0); MPV 9.7 fl. (7.2-11.1); NUCLEATED RBCS 0 /100WBC; PLATELET COUNT* 118 thou/uL (150-400); RBC 3.55 mil/uL (4.20-5.00); RDW-CV 18.5 % (10.5-14.5); WBC 6.8 thou/uL (4.0-11.0)
[2020-09-03 05:06] LABS: ALBUMIN 2.5 g/dL (3.4-5.0); CALCIUM 8.2 mg/dL (8.5-10.1); CREATININE 1.5 mg/dL (0.6-1.3); MAGNESIUM 2.6 mg/dL (1.8-2.4); PHOSPHORUS* 3.3 mg/dL (2.5-4.9); POTASSIUM 4.2 mmol/L (3.5-5.1); TOTAL BILIRUBIN 0.4 mg/dL (<0.1-1.0); TOTAL PROTEIN 5.7 g/dL (6.4-8.2)
[2020-09-03 05:09] LABS: TROPONIN-I LEVEL 1.88 ng/mL (<0.06)
--- NOTE | 2020-09-03 06:48 | NUR ---
ASSESSMENTS CHARTED. PATIENT'S BLOOD PRESSURE DROPPED SUDDENLY AROUND MIDNIGHT. SEDATION STOPPED, NO MEDICATIONS AFFECTING BLOOD PRESSURE INFUSING AND PATIENT CONTINUED TO DROP HER PRESSURE. NS BOLUS ADMINISTERED WITH NO EFFECT. PATIENT STARTED ON LEVOPHED FOR BLOOD PRESSURE SUPPORT. LEVOPHED TITRATED TO 4 MCG/MIN, BP WITHIN ACCEPTABLE PARAMETERS, MAP >60. PATIENT AWAKE AND COMFORTABLE ON 50 MCG OF FENTANYL. PROPOFOL STOPPED PER DR. OLERAY. VERSED TITRATED OFF CONCERNING BLOOD PRESSURE EFFECTS. NO BM THIS SHIFT. TROPONIN TRENDING DOWN. HEPARIN TITRATED TO 1000 UNITS/HR.
[2020-09-03 06:59] LABS: ABSOLUTE LYMPHOCYTES 0.2 thou/uL (0.8-5.3); ABSOLUTE MONOCYTES 0.2 thou/uL (0.0-1.2); ABSOLUTE NEUTROPHILS 6.4 thou/uL (1.6-8.1)
[2020-09-03 07:00] LABS: HYPOCHROMASIA 2+; MICROCYTES 1+; PLATELET ESTIMATE DECREASED
[2020-09-03 07:02] LABS: LARGE PLATELETS MODERATE
[2020-09-03 07:46] LABS: BE -5.1 mmol/L (-2 to +3); PCO2 33.3 mmHg (35.0-45.0); PO2 104.9 mmHg (75.0-100.0)
--- NOTE | 2020-09-03 16:46 | NUR ---
AFTER COMPLETING 1600 TURN AND LINEN CHANGE THIS RN OBSERVED CENTRAL LINE APPEARED TO HAVE INCREASED CATHETER LENGTH AT EXIT SITE. BP ON ARTERIAL LINE BEGAN TO TREND DOWN. IV GTTS THROUGH CENTRAL LINE STOPPED. LEVOPHED AND PRECEDEX GTTS SWITCHED TO PIV. ANESTHESIA NOTIFIED FOR CL REPLACEMENT. Amanda MAY RN
[2020-09-03 18:39] LABS: CALCIUM 7.5 mg/dL (8.5-10.1); CREATININE 1.3 mg/dL (0.6-1.3); MAGNESIUM 2.2 mg/dL (1.8-2.4); POTASSIUM 4.2 mmol/L (3.5-5.1)
--- NOTE | 2020-09-03 19:34 | NUR ---
PT CURRENTLY SITTING UP IN BED W/ EYES CLOSED. ATTEMPTED TO CALL DR OLEARY SERVICE W/ NO ANSWER FOR ORDER CLARIFICATION. NOTIFIED HSSEE, WHO CALLED PHONE NUMBER ACQUIRED FROM [facility] [facility] [facility] W/O ANSWER. CONT CURRENT VENT SETTINGS AT THIS TIME UNTIL ORDER CLARIFICATION. FACETIMED W/ DTR AND GAVE FULL UPDATE. RIJ CL IN PLACE. PRECEDEX AND LEVOPHED GTT INFUSING. RT RADIAL ART LINE. X2 PIV. SCDS ON. BILAT SOFT WRIST RESTRAINTS. RICHMOND TO D/D. CONTINUE ENHANCED PRECAUTIONS UNTIL PCR FINALIZED. Amanda MAY RN
[2020-09-04] VITALS (13 sets, daily range): BP systolic 90–141; BP diastolic 44–68
--- NOTE | 2020-09-04 00:16 | NUR ---
Patient not extubated due to nursing recommendation to not move patient per nursing surperviser
[2020-09-04 03:50] LABS: ABSOLUTE LYMPHOCYTES 0.7 thou/uL (0.8-5.3); ABSOLUTE MONOCYTES 0.3 thou/uL (0.0-1.2); ABSOLUTE NEUTROPHILS 4.1 thou/uL (1.6-8.1); BASOPHILS 0.1 %; HEMOGLOBIN 8.1 gm/dL (12.0-15.0); MCH 23.1 pg (26.0-34.0); MCHC 31.2 g/dL (28.0-37.0); MONOCYTES 6.3 %; MPV 8.4 fl. (7.2-11.1); NUCLEATED RBCS 0 /100WBC; PLATELET COUNT* 107 thou/uL (150-400); POLYS 80.6 %; RBC 3.51 mil/uL (4.20-5.00); RDW-CV 18.8 % (10.5-14.5); WBC 5.1 thou/uL (4.0-11.0)
[2020-09-04 04:13] LABS: ALBUMIN 3.1 g/dL (3.4-5.0); CREATININE 1.3 mg/dL (0.6-1.3); MAGNESIUM 2.3 mg/dL (1.8-2.4); POTASSIUM 4.2 mmol/L (3.5-5.1); TOTAL BILIRUBIN 0.5 mg/dL (<0.1-1.0); TOTAL PROTEIN 6.4 g/dL (6.4-8.2)
[2020-09-04 04:49] LABS: TROPONIN-I LEVEL 2.67 ng/mL (<0.06)
[2020-09-04 09:44] LABS: BE -4.2 mmol/L (-2 to +3); PCO2 38.9 mmHg (35.0-45.0)
[2020-09-04 09:45] LABS: PO2 141.1 mmHg (75.0-100.0)
--- NOTE | 2020-09-04 10:51 | NUR ---
8202 ASSUMED CARE OF PATIENT. SEE DOCUMENTED ASSESSMENT. PT IS AWAKE ON VENTILATOR AND UNRESTRAINED. ABLE TO MAKE NEEDS KNOWN.
--- NOTE | 2020-09-04 10:52 | NUR ---
1020 EXTUBATED PER ORDER. NOW ON 4LPM NASAL CANNULA. GIVEN HER CELL PHONE AND CALL LIGHT.
--- NOTE | 2020-09-04 11:52 | NUR ---
ICU rounds: Plan to extubate today, pending pulm. Covid pcr still pending. CM to contact Pt's family.
--- NOTE | 2020-09-04 17:47 | NUR ---
PATIENT PROGRESSING TOWARDS GOALS. EXTUBATED THIS MORNING AND NOW ON 2LPM NASAL CANNULA. NG REMOVED AND PASSED BEDSIDE SWALLOW EVAL. WEANED OFF OF LEVOPHED THIS MORNING. GOOD OUTPUT AND WAS ABLE TO HAVE CONTINENT BOWEL MOVEMENT. DENIES PAIN. HAS BEEN IN CONTACT WITH FAMILY VIA HER SMARTPHONE. REMAINS IN ENHANCED PRECAUTIONS PENDING PCR TEST
--- NOTE | 2020-09-04 22:28 | NUR ---
REPORT GIVEN TO LEANNA AVILA FOR CONTINUED CARE. PT TO ROOM 200 ACCOMPANIED BY RN AND PORTABLE TRACK LINE MARKER AND ON 2L O2. CPAP DELIVERED BY FAMILY AND WITH PATIENT. NO CONCERNS AT THIS TIME.
[2020-09-05] VITALS (7 sets, daily range): BP systolic 109–165; BP diastolic 45–83
--- NOTE | 2020-09-05 01:20 | NUR ---
PT TRANSFERED TO ROOM 200 AT 2300. REPORT RECEIVED FROM STRUCTURES ENGINEER FAREED. PT VOICED NO COMPLAINTS, CONTINUES ON 2L O2 NC. PT TO USE HOME CPAP. AGREE WITH LEANNA GUERRIERSUPERVISOR ADVERTISING DISPATCH CLERKS. SR ON FILLING LAYER UP. CALL LIGHT WITHIN REACH.
[2020-09-05 02:06] LABS: MYCOPLASMA PNEUMONIA IgG <100 U/mL (0-99); MYCOPLASMA PNEUMONIA IgM <770 U/mL (0-769)
[2020-09-05 07:34] LABS: HEMOGLOBIN 7.9 gm/dL (12.0-15.0); MCH 23.4 pg (26.0-34.0); MCHC 31.4 g/dL (28.0-37.0); MCV 74.5 fL (80.0-100.0); MPV 8.9 fl. (7.2-11.1); RBC 3.36 mil/uL (4.20-5.00); RDW-CV 19.3 % (10.5-14.5); WBC 4.2 thou/uL (4.0-11.0)
[2020-09-05 07:45] LABS: CALCIUM 7.7 mg/dL (8.5-10.1); CREATININE 1.2 mg/dL (0.6-1.3); POTASSIUM 4.4 mmol/L (3.5-5.1)
[2020-09-06 04:35] VITALS: BP 142/55
[2020-09-06 05:55] LABS: HEMATOCRIT 24.9 % (37.0-47.0); HEMOGLOBIN 7.6 gm/dL (12.0-15.0); MCHC 30.7 g/dL (28.0-37.0); MPV 8.8 fl. (7.2-11.1); RBC 3.32 mil/uL (4.20-5.00); RDW-CV 19.2 % (10.5-14.5); WBC 3.4 thou/uL (4.0-11.0)
[2020-09-06 06:12] LABS: CALCIUM 7.7 mg/dL (8.5-10.1); CREATININE 1.1 mg/dL (0.6-1.3); MAGNESIUM 2.3 mg/dL (1.8-2.4); POTASSIUM 4.7 mmol/L (3.5-5.1); TOTAL BILIRUBIN 0.4 mg/dL (<0.1-1.0); TOTAL PROTEIN 6.4 g/dL (6.4-8.2)
--- NOTE | 2020-09-06 06:34 | NUR ---
PT A&OX4, ON 2L NC - CPAP 2L WHILE SLEEPING. PASSING TO DAY SHIFT, NEED CLARIFICATION ON ORDERS FOR DC OF CENTRAL LINE AND URINARY CATHETER. PT TURNED Q2H. PT SR WITH PVCs ON MONITOR. PT SLEEPING WELL. WILL CONTINUE TO MONITOR.
[2020-09-06 09:00] VITALS: BP 162/85
[2020-09-06 12:55] VITALS: BP 167/59
--- NOTE | 2020-09-06 14:51 | NUR ---
ASSUMED CARE OF PT AT 0730. PT UP TO RECLINER FOR BREAKFAST AND LUNCH. TOLERATED FAIR. WEAKNESS NOTED. RICHMOND CATHETER AND CENTRAL LINE DISCONTINUED. PT VOIDING WITH NO DIFFICULTIES. UP WITH 1 ASSIST TO BSC. APPROXIMATELY 1 HOUR POST REMOVAL OF CENTRAL LINE PT CALLED OUT STATING SHE IS BLEEDING. THIS RN INTO ROOM AND DRESSING SATURATED AND SMALL AMOUNT OF BLOOD NOTED RUNNING DOWN PT CHEST ONTO BREAST. PT STATES SHE HAD A BAD COUGHING SPELL AND NOTED BLOOD. ADDITIONAL PRESSURE OF 5 MINUTES HELD AND NEW PRESSURE DRESSING PLACED. DRESSING C/D/I AT THIS TIME. PT DENIES ANY PAIN OR SHORTNESS OF BREATH AT REST. TRACING SR WITH OCCASIONAL PVC'S ON THE POLISHER APPRENTICE. ON 2L NC SAT MID 90'S. PT HAS SHORTNESS OF BREATH WITH EXERTION. PT HAD A BOWEL MOVEMENT THIS MORNING. COVID PENDING PCR. ENHANCED PRECAUTIONS MAINTAINED. PER DR HERNANDEZ FOR NO IV ACCESS PT ON ORAL ABX. CARDIOLOGY HERE TO SEE PT. ORDERS RECEIVED TO INCREASE LISINOPRIL TO 40MG. REFER TO EMAR. PT GOAL FOR TODAY IS INCREASE ACTIVITY AND UP TO CHAIR FOR MEALS. AM ASSESSMENT CHARTED. MEDICATIONS PER DEC. PT REPOSITIONED EVERY 2 HOURS FOR COMFORT. HOURLY ROUNDING OBSERVED. BED IN LOW POSITION. CALL LIGHT WITHIN REACH. WILL CONTINUE PLAN OF CARE.
[2020-09-06 15:38] VITALS: BP 159/63
[2020-09-07] VITALS (7 sets, daily range): BP systolic 142–154; BP diastolic 54–83
--- NOTE | 2020-09-07 06:36 | NUR ---
NO ACUTE CHANGES THROUGHOUT SHIFT. ALL ROUNDINGS COMPLETED, ALL NEEDS MET. FULL ASSESSMENT COMPLETED CHARTED. BED LOCKED AND IN LOW POSITION. CALL LIGHT AND PERSONAL ITEMS IN REACH.
--- NOTE | 2020-09-07 07:45 | CON ---
[address] [address] CONSULTATION Name: QIANA DRAKE Room: [address] IN M.R.#: [id number] Admission: 09/02/20 Attend Phys: Orion Leon MD Discharge: Date of : 47 Report #: [id number] THIS REPORT FOR: //name// cc: Marcy Maciel Maggie M. DO ~ DATE OF SERVICE: 09/02/2020 CONSULT REQUESTED BY: Dr. Cihlds. INDICATION FOR CONSULTATION: Ventilator management. HISTORY OF PRESENT ILLNESS: A 74-year-old female I have in fact previously seen her about 5 years ago in this hospital in 2014. The patient has a known history of coronary artery disease with congestive heart failure as well as COPD. She also has fairly severe obstructive sleep apnea requiring a CPAP of 17 cm of water with 2 L of oxygen for a correction at night. It is not known to me as to whether the patient in fact is using this therapy at this time. The patient at this time is admitted with respiratory distress. In fact the patient was intubated in the field when noninvasive mechanical ventilation failed. Her endotracheal tube was subsequently changed in the ER, she was a difficult stick for a central line placement and there was a question of a pneumomediastinum and pneumothorax; however, there is no definite evidence. She has initially had a CTA chest and subsequently a CT chest without contrast. The patient does appear to have elevation in troponin I, consistent with a non-ST segment myocardial infarction. He also had fairly significant pulmonary infiltrates. Also, the patient is hypotensive; however, she also is on propofol for sedation and had recently received fentanyl before I saw her. The patient initially had a significant metabolic as well as respiratory acidosis. We adjusted the ventilator and now the patient no longer has a respiratory acidosis; however, metabolic acidosis persists. The patient is on the ventilator and is unable to provide a further history or review of systems. PAST MEDICAL HISTORY: COPD with severe obstructive sleep apnea. The patient was recommended a CPAP of 17 cm of water with 2 L oxygen in line at night. It is not known to me as to whether the patient has been on oxygen during the day. It is not known as to whether the patient is compliant with CPAP, coronary artery disease, status post stents, congestive heart failure, left ventricular ejection fraction from 2015 around 45%, pulmonary artery systolic also 46 from back then. Previously has also had a myocardial infarction non-ST segment gallbladder surgery, hypertension, TIA, peripheral vascular disease, leg stance, morbid obesity, 5 vaginal deliveries and 2 miscarriages. SOCIAL HISTORY: Extensive history of smoking in 2014. [place] [address] CONSULTATION Name: QIANA DRAKE Room: [address] IN ..#: [id number] Admission: 09/02/20 Attend Phys: Orion Leon MD Discharge: Date of : 47 Report #: [id number] smoking and had smoked for several decades, not known to me as to whether the patient subsequently quit. No known history of heavy alcohol use or illegal drug use. CURRENT MEDICATIONS: List in [email or web address] reviewed. HOME MEDICATIONS: List also in [email or web address] reviewed. FAMILY HISTORY: There is no pertinent family history known at this time. PHYSICAL EXAMINATION: GENERAL: The patient is sedated with propofol. Recently, he received fentanyl when I saw her. VITAL SIGNS: Her pulse of 58, blood pressure 90/30, respiratory rate set on the ventilator 24. She is breathing at 24, tidal volume of 500, PEEP is 5. She is saturating 100% on 50% FiO2, afebrile with a temperature of 35.8. HEENT: Head is normocephalic and atraumatic. NECK: Does not show raised JVP, asymmetry, mass or lymph nodes. There is a central line in place. CHEST: Symmetrical expansion on inspection and palpation. On auscultation, breath sounds are bilaterally equal but decreased. I do not hear any added sounds. HEART: Regular. There is no murmur. ABDOMEN: Soft and nontender. EXTREMITIES: Lower extremities show 2+ edema bilaterally. There is no calf tenderness. SKIN: Dry and intact. NEUROLOGICAL: She moves all extremities to pain. Detailed neurological examination, however, is not possible at this time. LABORATORY DATA: The patient's CTA chest as well as CT chest performed this morning are noted. In summary, there are extensive infiltrates as well as atelectasis at bilateral lung bases noted. There may be a component of increase in pulmonary vascular congestion as well. The patient's lab work as well as arterial blood gases are in [facility] and these are reviewed. ASSESSMENT AND PLAN: 1. Acute hypoxemic and hypercarbic respiratory failure. I have adjusted the ventilator accordingly. The patient will need frequent arterial blood gases In addition, the patient's blood pressure is soft. Therefore, I recommend that we proceed with an arterial line placement temporarily. I have increased the patient's respiratory rate to 24. She is unlikely to need this respiratory rate long-term, I will repeat an arterial blood gas at 5:00 p.m. today and then we will consider adjusting the ventilator accordingly. I agree with propofol as [address] [place] [address] CONSULTATION Name: QIANA DRAKE Room: [address] ADM IN ..#: [id number] Admission: 09/02/20 Attend Phys: Orion Leon MD Discharge: Date of : 47 Report #: [id number] long as the patient does not have significant hypotension with p.r.n. fentanyl. We will alter sedation accordingly in case the patient's blood pressure worsens, we will follow propofol related labs. 2. Pulmonary infiltrates/pneumonia. There are extensive pulmonary infiltrates noted. I agree with Criss. The patient also received Levaquin this morning. I intend to broaden antibiotic coverage further and add MRSA coverage. I will first try to obtain a sputum culture as well as in the nasal swab for MRSA before initiating therapy. I will also go ahead and repeat labs now and see where his creatinine as before deciding on the agent, may benefit from continuing atypical coverage as well. However, she does have atypical coverage in the system until tomorrow. Already other cultures and serologies are also ordered. I feel that COVID-19 is not fully ruled out at this time and therefore, I recommend obtaining a PCR, place the patient in isolation until the PCR is back. 3. Chronic obstructive pulmonary disease exacerbation. I agree with Solu-Medrol as well as nebulized bronchodilators as currently prescribed. 4. Non-ST segment myocardial infarction. The Cardiology service is on the case. 5. Ghbgl-bi-egksxei systolic congestive heart failure. Since the patient is hypotensive and the patient is ventilating and oxygenating adequately at this moment, I agree with continuing with fluid resuscitation as well as already ordered. We can diurese her later. I also agree with packed RBCs as ordered by the Cardiology Service, will await echo report. 6. Edema. I also recommend that we obtain venous Dopplers. The patient is noted to be on IV heparin at this time. 7. Gastrointestinal prophylaxis, on Protonix. 8. Clostridium difficile prophylaxis, Florastor. 9. Severe obstructive sleep apnea. This will need to be kept in consideration when extubated. The patient's baseline pCO2 is noted to be normal for him before, but she has had significant hypercarbic respiratory failure, previously as well. 10. Hypertension. See discussion above. 11. Morbid obesity. The patient is critically ill at this time. The total time spent providing critical care to this patient today exceeds 45 minutes. <ELECTRONICALLY SIGNED> By: Franco Hughes MD 09/07/20 0745 1233 [id number] Hughes MD /nt
[2020-09-07 08:51] LABS: ABSOLUTE LYMPHOCYTES 0.5 thou/uL (0.8-5.3); ABSOLUTE MONOCYTES 0.1 thou/uL (0.0-1.2); ABSOLUTE NEUTROPHILS 2.3 thou/uL (1.6-8.1); BASOPHILS 0.3 %; HEMATOCRIT 26.3 % (37.0-47.0); HEMOGLOBIN 8.2 gm/dL (12.0-15.0); LYMPHOCYTES 16.3 %; MCH 23.1 pg (26.0-34.0); MCHC 31.1 g/dL (28.0-37.0); MCV 74.3 fL (80.0-100.0); MONOCYTES 4.1 %; MPV 8.5 fl. (7.2-11.1); NUCLEATED RBCS 1 /100WBC; PLATELET COUNT* 117 thou/uL (150-400); POLYS 79.3 %; RBC 3.55 mil/uL (4.20-5.00); RDW-CV 18.8 % (10.5-14.5); WBC 2.8 thou/uL (4.0-11.0)
[2020-09-07 08:56] LABS: CALCIUM 8.2 mg/dL (8.5-10.1); CREATININE 1.1 mg/dL (0.6-1.3); MAGNESIUM 2.4 mg/dL (1.8-2.4); POTASSIUM 4.4 mmol/L (3.5-5.1)
[2020-09-07] MEDS ORDERED: IRON325 PO (08:57)
[2020-09-07] MEDS ORDERED: PREDNISONE 10 M10 MG PO (08:57)
[2020-09-07] MEDS ORDERED: VENTOLIN HFA 1818 GM INH (08:57)
[2020-09-07] MEDS ORDERED: AZITHROMYCIN 2250 MG PO (08:57)
[2020-09-07] MEDS ORDERED: LISINOPRIL40 MG PO (08:57)
[2020-09-07] MEDS ORDERED: AMOX TR-K CLV1 EAC4 PO (08:57)
--- NOTE | 2020-09-07 16:07 | NUR ---
PT REMAINS ON ENHANCED PRECAUTIONS. GI CONSULT ORDERED FOR + OCCULT BLOOD. O2 2LNC. HOME O2 ORDERED. UP WITH STB TO BSC.
[2020-09-08] VITALS (7 sets, daily range): BP systolic 120–184; BP diastolic 56–78
--- NOTE | 2020-09-08 12:26 | NUR ---
GI saw Pt today, plan EGD/colon tomorrow. Pt will need to be re-tested for home o2 closer to nm, updated Lisbeth at [facility]. Updated HH.
--- NOTE | 2020-09-08 14:21 | CON ---
[address] [address] CONSULTATION Name: NOELLEQIANA WHEELER Room: [address] IN M.R.#: [id number] Admission: 09/02/20 Attend Phys: Orion Leon MD Discharge: Date of : 47 Report #: [id number] THIS REPORT FOR: //name// cc: Marcy Maciel Maggie M. DO ~ DATE OF SERVICE: 09/08/2020 PRIMARY CARE PHYSICIAN: Dr. Marcy Maciel. Please note at the time of this dictation, the patient was seen and physically examined by myself. REASON FOR CONSULTATION: Positive occult stool and anemia. HISTORY OF PRESENT ILLNESS: This is a 74-year-old female who presented to the ER with increasing shortness of breath and some respiratory distress. She was found to have systolic congestive heart failure along with her morbid obesity and COPD. She did not respond and had to be intubated and was on the ventilator for a period of time. She was noted to have bilateral infiltrates concerning for pneumonia and her severe CO2 retention was noted. It was also noted that she had an increased troponin as well as a drop in her hemoglobin during this time. The patient denies prior to all of this that she has never been told she has been anemic. She states her last colonoscopy was about 8 years ago somewhere over in [place]. She was told that she did have some polyps, but she has not seen anyone since that time. She does not recall where her colonoscopy was done either. She states that her bowels move soft and formed on a daily basis. She has never had any change in her bowel habits or any overt bleeding noted. She denies any upper respiratory symptoms including reflux, difficulty swallowing or any abdominal pain; however, the patient does take Aleve regularly anywhere from 1-2 once to twice a day and has been doing this for an extended period of time. She uses this for her arthritic pain. ALLERGIES: No known drug allergies. MEDICATIONS: From home include lisinopril, aspirin, atorvastatin, omega 3, clonidine and cough suppressant. PAST MEDICAL HISTORY: COPD for which she uses CPAP, coronary artery disease with history of cardiac stents, congestive heart failure. She has had an NC, hypertension, TIA. She does have stents in her leg and morbid obesity. PAST SURGICAL HISTORY: Cholecystectomy. She has had a couple of miscarriages and a CABG [place] [address] CONSULTATION Name: QIANA DRAKE Room: [address] IN [facility]#: [id number] Admission: 09/02/20 Attend Phys: Orion Leon MD Discharge: Date of : 47 Report #: [id number] FAMILY HISTORY: Significant for breast and colon cancer in her sisters. SOCIAL HISTORY: She lives with her older sister. Denies any illegal drug use. She quit smoking about 6 or 7 years ago and denies any alcohol use. REVIEW OF SYSTEMS: Twelve-point review of systems is essentially negative except what is mentioned in the HPI. PHYSICAL EXAMINATION: VITAL SIGNS: Temperature 36.7, pulse 81, respirations 19, blood pressure 108/62. HEART: Regular rate and rhythm. LUNGS: Diminished, but clear. She does have O2 on at 2 liters. ABDOMEN: Soft, positive bowel sounds in all 4 quadrants with no masses or tenderness noted. LABORATORY DATA: Hemoglobin on admission was 9; however, a year ago in 08/2019, her hemoglobin was 12.6, it is currently 8.2. White count is 2.8, platelets are 117. BUN is 33, it is up from 14 from admission. Iron is 25. Ferritin is 17, total bilirubin is 0.4, alkaline phosphatase 56, ALT 65, AST is 77. She had an elevated troponin. PT 10.7, INR is 1. IMPRESSION: 1. Positive occult stool. 2. Acute anemia. 3. Family history of colon and breast cancer in her sisters. 4. Chronic obstructive pulmonary disease. 5. Status post non-ST elevation myocardial infarction. PLAN: 1. EGD and colonoscopy tomorrow with Dr. Doshi. 2. Further recommendations to be made after the procedure has been performed. Thank you for allowing us to participate in this patient's care. Please do not hesitate to call with any questions in regard to this consult. Agree with above assessment and plan by Yris Garcia. <ELECTRONICALLY SIGNED> By: Jaguar Doshi MD 09/08/20 1421 1048 [id number] Doshi MD /nt
--- NOTE | 2020-09-08 17:35 | NUR ---
PT SEEN BY GI TODAY. TO HAVE EGD AND COLONASCOPY TOMARROW. CURRENTLY DRINKING PREP. CLEAR LIQUID DIET UNTIL MIDNIGHT.
[2020-09-09] VITALS: BP 116/36
[2020-09-09 04:00] VITALS: BP 132/54
--- NOTE | 2020-09-09 06:36 | NUR ---
NO ACUTE CHANGES THROUGHOUT SHIFT. ALL ROUNDINGS COMPLETE, ALL NEEDS MET. FULL ASSESSMENT COMPLETED CHARTED. BED LOCKED AND IN LOW POSITION. CALL LIGHT AND PERSONAL ITEMS IN REACH.
[2020-09-09 08:00] VITALS: BP 128/42
[2020-09-09] MEDS ORDERED: NORVASC5 MG PO (08:55)
--- NOTE | 2020-09-09 11:36 | NUR ---
Pt to have EGD/colon, plan home afterwards pending GI recs. Ex ox to be completed to determine if Pt continues to need home o2 at [place]. CM will fax updated HH orders to [facility] at [place].
[2020-09-09 12:00] VITALS: BP 131/48
[2020-09-09 15:39] VITALS: BP 145/54
[2020-09-09 16:40] VITALS: BP 145/54
--- NOTE | 2020-09-11 15:07 | PATH ---
[address] [address] PATHOLOGY RPT PROCEDURE Name: LIZZIE DRAKE Room: [address] IN [facility].#: [id number] Admission: 09/02/20 Date of : 47 Discharge: 09/09/20 Report #: [id number] Path Case #: [id number] [facility] Accession Number: [id number] . 01 Material submitted: . PART A: stomach - GASTRIC BIOPSY FOR H. PYLORI PART B: colon - SIGMOID COLON POLYP. Modifiers: sigmoid . 01 Clinician provided ICD-10: A41.9 R65.21 . 01 Clinical history: . RESPIRATORY VENTILATION, LEFT THAN 24 CONSECUTIVE, ACUTE RESPIR FAILURE, PUL INFILTR/RESPIR, LACTIC ACID . 02 Diagnosis: A. 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 . B. Sigmoid colon polyp: - Tubular adenoma, negative for high-grade dysplasia. EVY:paolo; 09/11/2020) . Special stain on A: H. pylori immuno QMS 09/11/2020 1244 Local . 02 Electronically signed: . David Murillo MD, Pathologist NPI- [id number] . 01 Gross description: . A. The specimen is received in formalin, labeled "Sony Lizzie, gastric biopsy" and consists of 2 fragments of pink-ordaz tissue measuring 0.2 x 0.2 cm and 0.3 x 0.3 cm which are entirely submitted in A1. . B. The specimen is received in formalin, labeled "SonyLizzie, sigmoid colon polyp" and consists of a fragment of pink-ordaz tissue measuring 0.3 x 0.2 cm which is entirely submitted in B1. (SDY; 09/10/2020) SYU/SYU 09/10/2020 1614 Local . 02 Pathologist provided ICD-10: K29.50, D12.5 . 02 CPT . 551225, [id number], [id number] [place] [address] PATHOLOGY RPT PROCEDURE Name: YEN DRAKEFOZIA WHEELER Room: [address] IN .R.#: [id number] Admission: 09/02/20 Date of : 47 Discharge: 09/09/20 Report #: [id number] Path Case #: [id number] Specimen Comment: A courtesy copy of this report has been sent to [phone] Specimen Comment: [phone], Specimen Comment: Report sent to ,DR COLON / DR COLEMAN Performed at: [address], [place] [address] MD Eugenio Graham MD Phone: [phone] Performed at: 02 [facility] [address], [place], [place] [address] MD David Murillo MD Phone: [phone]
== END 2020-09-09 17:15 | disposition home health service (06) | DRG 871 ==
LOC: M.ERS 23:53 → M.ICU 09-02 01:40 → M.TBA-ER 09-02 01:40 → M.ICU 09-02 02:10 → M.2W 09-04 22:42
PROVIDERS: Internal Medicine; Internal Medicine Cardiovascular Disease; Internal Medicine Critical Care Medicine; Personal Emergency Response Attendant; Registered Nurse; ADMIT Internal Medicine; ATTEND Internal Medicine
PROC: 30233N1 Transfusion of Nonautologous Red Blood Cells into Peripheral Vein, Percutaneous Approach (ICD-10-PCS; principal; 2020-09-02)
PROC: 4A133B1 Monitoring of Arterial Pressure, Peripheral, Percutaneous Approach (ICD-10-PCS; principal; 2020-09-02)
PROC: 03HY32Z Insertion of Monitoring Device into Upper Artery, Percutaneous Approach (ICD-10-PCS; principal; 2020-09-02)
PROC: 5A1945Z Respiratory Ventilation, 24-96 Consecutive Hours (ICD-10-PCS; principal; 2020-09-02)
PROC: 4A133J1 Monitoring of Arterial Pulse, Peripheral, Percutaneous Approach (ICD-10-PCS; principal; 2020-09-02)
PROC: B548ZZA Ultrasonography of Superior Vena Cava, Guidance (ICD-10-PCS; principal; 2020-09-02)
PROC: 02HV33Z Insertion of Infusion Device into Superior Vena Cava, Percutaneous Approach (ICD-10-PCS; principal; 2020-09-02)
PROC: 0BH17EZ Insertion of Endotracheal Airway into Trachea, Via Natural or Artificial Opening (ICD-10-PCS; principal; 2020-09-02)
PROC: 0BP1XDZ Removal of Intraluminal Device from Trachea, External Approach (ICD-10-PCS; principal; 2020-09-02)
PROC: 5A09357 Assistance with Respiratory Ventilation, Less than 24 Consecutive Hours, Continuous Positive Airway Pressure (ICD-10-PCS; 2020-09-05)
PROC: 5A09357 Assistance with Respiratory Ventilation, Less than 24 Consecutive Hours, Continuous Positive Airway Pressure (ICD-10-PCS; 2020-09-06)
PROC: 5A09357 Assistance with Respiratory Ventilation, Less than 24 Consecutive Hours, Continuous Positive Airway Pressure (ICD-10-PCS; 2020-09-07)
PROC: 5A09357 Assistance with Respiratory Ventilation, Less than 24 Consecutive Hours, Continuous Positive Airway Pressure (ICD-10-PCS; 2020-09-08)
PROC: 0DBN8ZZ Excision of Sigmoid Colon, Via Natural or Artificial Opening Endoscopic (ICD-10-PCS; 2020-09-09)
PROC: 0DB68ZX Excision of Stomach, Via Natural or Artificial Opening Endoscopic, Diagnostic (ICD-10-PCS; 2020-09-09)
PROC: 5A09357 Assistance with Respiratory Ventilation, Less than 24 Consecutive Hours, Continuous Positive Airway Pressure (ICD-10-PCS; 2020-09-09)
DX: A41.9 Sepsis, unspecified organism (principal); R65.21 Severe sepsis with septic shock; J18.9 Pneumonia, unspecified organism; I50.23 Acute on chronic systolic (congestive) heart failure; J96.21 Acute and chronic respiratory failure with hypoxia; J96.22 Acute and chronic respiratory failure with hypercapnia; I21.A1 Myocardial infarction type 2; I13.0 Hypertensive heart and chronic kidney disease with heart failure and stage 1 through stage 4 chronic kidney disease, or unspecified chronic kidney disease; Z68.42 Body mass index [BMI] 45.0-49.9, adult; D61.818 Other pancytopenia; K29.70 Gastritis, unspecified, without bleeding; K57.30 Diverticulosis of large intestine without perforation or abscess without bleeding; G47.33 Obstructive sleep apnea (adult) (pediatric); E66.01 Morbid (severe) obesity due to excess calories; N18.30 Chronic kidney disease, stage 3 unspecified; E87.6 Hypokalemia; I27.20 Pulmonary hypertension, unspecified; I95.2 Hypotension due to drugs; E11.51 Type 2 diabetes mellitus with diabetic peripheral angiopathy without gangrene; E11.65 Type 2 diabetes mellitus with hyperglycemia; D50.9 Iron deficiency anemia, unspecified; D12.5 Benign neoplasm of sigmoid colon; E11.22 Type 2 diabetes mellitus with diabetic chronic kidney disease; J98.2 Interstitial emphysema; Z20.828 Contact with and (suspected) exposure to other viral communicable diseases; Z95.5 Presence of coronary angioplasty implant and graft; I25.2 Old myocardial infarction; Z95.1 Presence of aortocoronary bypass graft; Z86.73 Personal history of transient ischemic attack (TIA), and cerebral infarction without residual deficits; Z79.82 Long term (current) use of aspirin; Z79.899 Other long term (current) drug therapy

== ENCOUNTER 2020-10-16 10:31 | Observation (INO) | payer MEDICARE ==
[2020-10-16] VITALS (12 sets, daily range): BP systolic 108–154; BP diastolic 40–83
[~2020-10-16] VITALS: Ht 154.9 cm; Wt 109.8 kg
--- NOTE | ~2020-10-16 | H ---
[address] [address] HISTORY AND PHYSICAL Name: QIANA DRAKE Room: [address] IN M.R.#: [id number] Admission: 10/16/20 Attend Phys: Melo Huff MD, F Discharge: 10/17/20 Date of : 47 Report #: [id number] THIS REPORT FOR: cc: Marcy Macile Maggie M. DO ~ [facility],Medical Records Staff Please refer to the History and Physical performed in the physician's office. By: 1301Medical Records Staff [facility] /WILBERT
[~2020-10-16 10:31] MED LIST changes: +AMOX TR-K CLV1 EAC4 PO; +AZITHROMYCIN 2250 MG PO; +IRON325 PO; +LISINOPRIL40 MG PO; +NORVASC5 MG PO
[2020-10-16 11:43] LABS: HEMOGLOBIN 11.1 gm/dL (12.0-15.0); MCH 27.5 pg (26.0-34.0); MCHC 32.7 g/dL (28.0-37.0); MCV 84.2 fL (80.0-100.0); MPV 8.3 fl. (7.2-11.1); RBC 4.04 mil/uL (4.20-5.00); RDW-CV 24.3 % (10.5-14.5); WBC 2.7 thou/uL (4.0-11.0)
[2020-10-16 11:59] LABS: ALBUMIN 3.3 g/dL (3.4-5.0); CALCIUM 8.7 mg/dL (8.5-10.1); INR 1.1; POTASSIUM 3.9 mmol/L (3.5-5.1); TOTAL BILIRUBIN 0.6 mg/dL (<0.1-1.0); TOTAL PROTEIN 6.8 g/dL (6.4-8.2)
[2020-10-16 12:02] LABS: CHOLESTEROL 153 mg/dL (<200); HDL CHOLESTEROL 39 mg/dL (>40); LDL CHOLESTEROL 92 mg/dL (<100); SERUM ASSESSMENT Clear; TC:HDL 3.9 Ratio (Not establshd); TRIGLYCERIDE 110 mg/dL (<150); VLDL 22 mg/dL (<40)
--- NOTE | 2020-10-16 12:19 | EKG ---
[place] [address] ELECTROCARDIOGRAM REPORT Name: NOELLEQIANA LIAM Room: [facility]#: [id number] Admission: 10/16/20 Attend Phys: Melo Huff MD Discharge: Date of : 47 Date of Service: 10/16/20 1155 Report #: [id number] THIS REPORT FOR: //name// [facility] Test Date: 2020-10-16 Test Time: 11:55:22 Pat Name: QIANA DRAKE Department: Room: Gender: F Table Inspector: : 1945 Requested By: Melo Huff Order Number: [id number] Reading MD: Melo Huff Measurements Intervals Monon Rate: 69 P: 40 WV: 204 QRS: 11 QRSD: 113 T: 104 QT: 441 QTc: 473 Interpretive Statements Sinus rhythm Probable LVH with secondary repol abnrm Inferior infarct, old Compared to ECG 09/02/2020 00:03:34 Supraventricular tachycardia no longer present Left bundle-branch block no longer present Electronically Signed On 10-16-2020 12:19:13 OPERATIONS OFFICER by Melo Huff [email or web address] <ELECTRONICALLY SIGNED> By: Melo Huff MD, [facility] 10/16/20 1219 1155 1155 Melo Huff MD, [facility] /EPI
--- NOTE | 2020-10-16 17:00 | NUR ---
ASSUMED CARE OF PATIENT FROM EMBEDDED FIRMWARE DEVELOPER. PT IS ON BEDREST TIL 2100, PT WAS EDUCATED ON POC, DISEASE PROCESS AND USING THE CALL LIGHT FOR ASSISTANCE. WILL CONTINUE TO MONITOR.
--- NOTE | 2020-10-16 17:08 | EKG ---
[place] [address] ELECTROCARDIOGRAM REPORT Name: QIANA DRAKE Room: [facility]#: [id number] Admission: 10/16/20 Attend Phys: Melo Huff MD Discharge: Date of : 47 Date of Service: 10/16/20 1619 Report #: [id number] THIS REPORT FOR: //name// [facility] Test Date: 2020-10-16 Test Time: 16:19:20 Pat Name: QIANA DRAKE Department: Room: Gender: F Mower Operator: : 1945 Requested By: Melo Huff Order Number: [id number] Reading MD: Micky Hoyt Measurements Intervals Acra Rate: 92 P: 81 MD: 201 QRS: 23 QRSD: 108 T: 125 QT: 401 QTc: 497 Interpretive Statements Sinus rhythm Ventricular premature complex Inferior infarct, old Compared to ECG 10/16/2020 11:55:22 Ventricular premature complex(es) now present Myocardial infarct finding still present Electronically Signed On 10-16-2020 17:07:49 MARKETING FINANCE MANAGER by Micky Hoyt [email or web address] <ELECTRONICALLY SIGNED> By: Micky Hoyt MD, FAC 10/16/20 1707 1619 1619 Micky Hoyt MD, [facility] /EPI
[2020-10-17] VITALS: BP 115/50
[2020-10-17 04:00] VITALS: BP 129/64
[2020-10-17 05:12] LABS: CALCIUM 8.5 mg/dL (8.5-10.1); TROPONIN-I LEVEL 0.18 ng/mL (<0.06)
[2020-10-17 08:04] VITALS: BP 104/54
[2020-10-17] MEDS ORDERED: PLAVIX 75 MG TA75 MG PO (09:31)
--- NOTE | 2020-10-17 10:23 | NUR ---
CM SPOKE TO THE PT TO DISCUSS CM ASSESSMENT. PT A&O, AND INDEPENDENT WITH ADL'S. PT PREPARES MEALS AT HOME. PT RESIDES AT HOME WITH HER SISTER AND SHE DOES ALL VIDEO SURVEILLANCE TECHNICIAN AND DRIVING. PT USES A WALKER OR A CANE FOR MOBILITY, AND USES THE BIPAP AT REST. PT INFORMS THAT SHE IS CURRENTLY ON-SERIVCE WITH HH, BUT COULD NOT RECALL THE NAME. CM TO F/U WITH PT TO OBTAIN NAME CURRENT HH. PT HAS 0 HX OF SNF. PT HOPEFUL TO RESUME HH AT D/C. CM INFORMED RN IN-CHARGE OF PT OF THIS. CM WILL REMAIN AVAILABLE TO ASSIST AND FOLLOW NEEDED.
[2020-10-17 11:15] VITALS: BP 104/54
--- NOTE | 2020-10-17 12:29 | NUR ---
ASSUMED CARE OF PT THIS AM AROUND 0715- BLOOD DONOR RECRUITER SUPERVISOR IN PLACE ORDERED, TRACING SR/1ST DEGREE/PVC- PT A&O X4- CONT OF BOWEL AND BLADDER, RICHMOND D/C'D THIS AM AND PT URINATING OKAY WITH NO PROBLEMS POST REMOVEAL- LCTA, RESP EVEN AND UN-LABORED- ABD SOFT/ROUND/NON-TENDER, BS X4 QUADS- LAST BM REPORTED 10/16/20- IV NOTED TO RIGHT AC INTACT AND SL- RIGHT GROIN SITE C/D/I, WITH NO HEMATOMA NOTED- DRESSING REMOVED WITH BANDAIDE PLACED TO SITE PER CRN THIS AM- D/C ORDERS NOTED THIS AM PER - IV TO RIGHT AC D/C'D ALONG WITH BLOOD DONOR RECRUITER SUPERVISOR PRIOR TO D/C- D/C EDUCATION/TEACHING/NEEDED FOLLOW UP'S COMMUNICATED TO PT WITH VERBAL UNDERSTANDING NOTED PER PT- WRITTEN EDUCATION ALONG WITH SCRIPTS PROVIDED TO PT PRIOR TO D/C, ALL QUESTIONS AND CONCERNS ADDRESSED PRIOR TO D/C- BELONGINGS PACKED AND ACCOUNTED FOR PER PT- PT REPORTS TO HAVE HAD WALKER IN ER AT TIME OF ADMIT, TOLD TO PLACE IN [facility] IN ER- THIS NURSE ALONG WITH SALES VENDOR HAVE TRIED TO FIND IN HOSPITAL WITH NO LUCK- PT ABLE TO PROVIDE PT WITH A NW WALKER PRIOR TO DC- PT ESCORTED PER PT VIA W/C WITH BELONGINGS; FRIEND AT SIDE FOR D/C- PT NOTED TO HAVE D/C'D AT 1230- NO PROBLMES TO NOTE AT TIME OF D/C
[2020-10-17 12:36] VITALS: BP 104/54
--- NOTE | 2020-10-19 10:05 | EKG ---
[place] [address] ELECTROCARDIOGRAM REPORT Name: QIANA DRAKE Room: [address] IN ..#: [id number] Admission: 10/16/20 Attend Phys: Melo Huff MD Discharge: 10/17/20 Date of : 47 Date of Service: 10/17/20813 Report #: [id number] THIS REPORT FOR: //name// [facility] Test Date: 2020-10-17 Test Time: 08:14:50 Pat Name: QIANA DRAKE Department: Room: [facility] Gender: F [employer]r: [place] : 1945 Requested By: Melo Huff Order Number: [id number] Reading MD: Balwinder Heller Measurements Intervals [place] Rate: 82 P: 56 ND: 201 QRS: 23 QRSD: 106 T: 124 QT: 391 QTc: 457 Interpretive Statements Sinus rhythm Inferior infarct, old Compared to ECG 10/16/2020 16:19:20 Ventricular premature complex(es) no longer present Myocardial infarct finding still present Electronically Signed On 10-19-2020 10:05:12 BREAST TRIMMER by Balwinder Heller [email or web address] <ELECTRONICALLY SIGNED> By: Balwinder Heller MD, FAC 10/19/20 1005 3 3 Balwinder Heller MD, FAC /EPI
--- NOTE | 2020-10-20 16:34 | SHORT ---
[address] [address] SHORT STAY SUMMARY Name: QIANA DRAKE Room: [address] IN M.R.#: [id number] Admission: 10/16/20 Attend Phys: Melo Huff MD, F Discharge: 10/17/20 Date of : 47 Report #: [id number] THIS REPORT FOR: cc: Marcy Maciel Maggie M. DO ~ Blick, David R. MD [facility] DISCHARGE DIAGNOSES: 1. Coronary artery disease. 2. Hypertension. 3. Hyperlipidemia. 4. Chronic obstructive pulmonary disease. 5. Anemia. 6. Sleep apnea. 7. Previous right carotid endarterectomy. PROCEDURES: Left heart catheterization with placement of a drug-eluting stent in the vein graft to the right coronary artery. CONSULTANTS: None. HISTORY OF PRESENT ILLNESS: The patient is a 75-year-old white female who was brought to the outpatient department to undergo cardiac catheterization. The patient had previous coronary artery bypass surgery in 2014. She has not been seen recently in the Cardiology Clinic. She was actually admitted to [place] in August with shortness of breath. She apparently had to be intubated and had possible pneumonia. She was found to be anemic with the hemoglobin of 7.6. She was transfused. Her troponin is borderline elevated. Her blood pressure elevated. Echocardiogram showed an ejection fraction of 50%. She was started on amlodipine for elevated blood pressure. After discharge, she noticed swelling of her feet. She was taken off the amlodipine. She does complain of shortness of breath, but denied any chest pain, palpitations, syncope. She saw my nurse practitioner on 09/21 and underwent a nuclear stress test on 09/29. This showed reversible defect involving the anterior wall and reversible defect involving the lateral wall. Ejection fraction 49%. Because of her abnormal nuclear stress test and complaint of shortness of breath, she was admitted for outpatient cardiac catheterization. PAST MEDICAL HISTORY: Otherwise significant for carotid endarterectomy, sleep apnea, cholecystectomy. She has a history of hypertension, hyperlipidemia, sleep apnea. MEDICATIONS: Include aspirin, Lipitor, clonidine p.r.n., Prinivil. She is no longer taking amlodipine. ALLERGIES: She has no known drug allergies. PHYSICAL EXAMINATION: [place] [address] SHORT STAY SUMMARY Name: QIANA DRAKE Room: [address]#: [id number] Admission: 10/16/20 Attend Phys: Melo Huff MD, F Discharge: 10/17/20 Date of : 47 Report #: [id number] VITAL SIGNS: Her blood pressure was 140/70, pulse 70. HEENT: She was anicteric. Mucous membranes are moist. CHEST: Clear to auscultation. CARDIOVASCULAR: Regular rate and rhythm. ABDOMEN: Soft. EXTREMITIES: Had no edema. SKIN: Warm and dry. RADIOLOGICAL DATA: Her ECG showed a normal sinus rhythm. LABORATORY WORK: Sodium 143, potassium 4.0, BUN of 8, creatinine 1.0. Her liver function studies were normal. Her cholesterol 153, triglyceride 110, HDL 39, LDL 92. White blood cell count was 2.7, hemoglobin 10.1, platelet count was only 95,000. HOSPITAL COURSE: The patient was brought to the outpatient department. I performed left heart catheterization from the right femoral artery. No ventriculogram was performed. The LAD and circumflex, right coronary artery appeared chronically occluded. The vein graft to the circumflex could not be identified. It was felt to be chronically occluded. The vein graft to the right coronary artery had 90% mid stenosis. The posterolateral branch of the right coronary artery had a stent that was chronically occluded. There was a patent BUNCH graft to the LAD. She was given heparin. I then placed a single drug-eluting stent in the vein graft to the right coronary artery. She tolerated this well. She was loaded with Plavix. A closure device was placed in the right femoral artery. Prior to discharge, she was ambulating, had no further chest pain, shortness of breath, palpitations. There was no bleeding from the groin. Followup lab work the following day included a troponin that was noted to be 0.18. There were no ECG changes. The patient was discharged to continue her home medications to include aspirin 81 mg a day. She was taking Plavix 75 mg a day for 1 year, Lipitor 20 mg a day, clonidine as needed, lisinopril 20 mg a day. She was discharged to follow up with Dr. Maciel for routine medical care. She is scheduled to see me in Cardiology Clinic in 1 month for followup. She was to contact my office if she had recurrent chest pain or shortness of breath. Her prognosis is guarded due to diffuse coronary artery disease and advanced age. She will need followup carotid Doppler study because of her previous carotid endarterectomy. I did recommend she start an exercise program and maintain low-fat diet. <ELECTRONICALLY SIGNED> By: Melo Huff MD, [facility] 10/20/20 1634 0928 [id number] Huff MD, FACC /nt
--- NOTE | 2020-10-26 10:37 | CARD ---
[address] [address] CARDIAC CATH REPORT Name: QIANA DRAKE Room: [address] Melissa M.RJose#: [id number] Admission: 10/16/20 Attend Phys: Melo Huff MD, F Discharge: 10/17/20 Date of : 47 Report #: [id number] THIS REPORT FOR: cc: Marcy Maciel Maggie M. DO ~ Melo Huff MD [facility] ADDENDUM APPROVED REPORT Study performed: 10/16/2020 12:56:26 Patient Details Patient Status: Out-Patient Room #: The patient is a 75 year-old female Event Personnel Bob Urrutia RN RN, Miesha Villalpando, Gissell Carmichael RTR Refugio Raman David Iap Displays Analyst Procedures Performed Art Access - R femoral artery* Left Heart Cath Coronaries, Bypass Grafts [id number] LHCCORCABG ANJANA Revasc Graft Single RCA [id number] SVGREVSING; Aortic Root Indication Dyspnea, Positive stress test Risk Factors Hypercholesterolemia, Coronary Artery DiseaseHypertension Previous Procedures/Diagnoses Previous CABGPrevious PCI Admission/Lab Medications/Medications given during procedure Glycoprotein IllbIlla Inhibitors, Heparin Unfract., Hydralazine (Apresoline) IV 10 mg, Heparin IV 5000 units, Aggrastat Unknown 10.9 ml, Plavix PO 600 mg Procedure Narrative The patient was brought electively to the Cardiac Catheterization Laboratory and was prepped and draped in a sterile manner. The right femoral was infiltrated with 1% Lidocaine subcutaneous anesthesia. A 6 fr sheath was inserted into the right femoral artery. Coronary angiography was performed using coronary [place] [address] CARDIAC CATH REPORT Name: QIANA DRAKE Room: [address]#: [id number] Admission: 10/16/20 Attend Phys: Melo Huff MD, F Discharge: 10/17/20 Date of : 47 Report #: [id number] right coronary system was accessed and visualized with a Diagnostic catheter. The left coronary system was accessed and visualized with a Diagnostic catheter. The left ventricle was accessed and visualized with a Diagnostic catheter. Left ventricular/Aortic Valve gradient assessed via catheter pullback. Closure device was deployed with a 6 Fr Mynx. The patient tolerated the procedure well and there were no complications associated with the procedure. There was no hematoma. Unable to deploy angioseal because of calcified femoral artery. Therefore, a mynx was deployed Aortic root injection was performed with a pigtail catheter. Intraoperative Conscious Sedation Sedation start time: 14:00 Case end Time: 15:00 No sedation given. Fluoro Time: 11.3 minutes Dose: DAP 99684 cGycm2 Contrast Type and Amount: Omnipaque 265 ml Coronary Angiography The patient's coronary anatomy is co- dominant. [place] Artery Percent Stenosis Grafts (Complete if Previous CABG=Yes: Percent Stenosis) Patent BUNCH graft to the mid LAD was visualized with a BUNCH catheter. SVG to the distal rca was visualized with a JR4 catheter and had a mid 90% stenosis. Unable to cannulate the SVG to the circumflex despite using JR4 catheter and right amplatz I catheter Diagnostic Cath Left Main 0% stenosis LAD 100% occlusion after the first diagonal branch Circumflex 60% mid stenosis noted OM1 60% proximal stenosis OM3 occluded and filled by collaterals from the rca Right Coronary mid RCA was chronically occluded and filled by collaterals from the left coronary artery. RPLV stent appearred chronically occluded Left Ventriculography Left Ventriculography was not performed. Aortic root injection demonstrated no aortic insufficiency, and only one patent [place] [address] CARDIAC CATH REPORT Name: QIANA DRAKE Room: [address]#: [id number] Admission: 10/16/20 Attend Phys: Melo Huff MD, F Discharge: 10/17/20 Date of : 47 Report #: [id number] The aortic pressure is 191/70 mmHg with a mean of 113 mmHg. The left ventricular pressure is 187/17 mmHg with a mean of mmHg. The left ventricular end diastolic pressure is 20 mmHg. There was no gradient across the aortic valve upon pullback. Pullback from the left ventricle to the aorta revealed no gradient across the aortic valve. PCI Technique Lesion Anticoagulation was achieved with Heparin. bolus of IV aggrastat given Percutaneous coronary intervention was performed on the Mid 1/3 of SVG grafted to RCA. The lesion stenosis prior to intervention was 90% with RAISA 3 flow. A RCB Guide Guide Catheter was used to engage the svg ostium. A [employer] Interventional Guidewire was used to cross the lesion. STENT DEPLOYMENT A drug-eluting stent nicola 3.0x15 was inserted and inflated up to 12.00atm for 11seconds. Repeat angiography revealed the following post-stent deployment results: 0% stenosis. Additional Inflation: 17.00atm for 11seconds. Additional Inflation: 22.00atm for 13seconds. 22.00 chrissy for 9 seconds. Final angiography reveals 0 % stenosis with RAISA 3 flow. Conclusion 1. Chronic occlusion of the mid LAD, third marginal branch of the circumflex, and mid RCA 2. Chronic occlusion of a stent in the posterolateral branch of the distal RCA 3. Patent BUNCH graft to the LAD 4. SVG to the RCA had a mid 90% stenosis 5. SVG to the circumflex appearred chronically occluded 6. successful placement of a drug eluting stent in the SVG to the RCA Recommendations Cardiac Rehabilitation Referral [facility] [place] [address] CARDIAC CATH REPORT Name: QIANA DRAKE Room: [address] [place]#: [id number] Admission: 10/16/20 Attend Phys: Melo Huff MD, F Discharge: 10/17/20 Date of : 47 Report #: [id number] Medications Administered Clopidogrel <ELECTRONICALLY SIGNED> By: Melo Huff MD, FACC 10/26/20 1037 1037 [id number] Huff MD, FACC /INF
== END 2020-10-17 12:30 | disposition home or self-care (01) ==
LOC: M.CL 10:31 → M.TBA-ER 17:04 → M.2W 17:04
PROVIDERS: ADMIT Internal Medicine Cardiovascular Disease; ATTEND Internal Medicine Cardiovascular Disease
DX: I25.10 Atherosclerotic heart disease of native coronary artery without angina pectoris (principal); J44.9 Chronic obstructive pulmonary disease, unspecified; E78.5 Hyperlipidemia, unspecified; D64.9 Anemia, unspecified; G47.30 Sleep apnea, unspecified; Z90.49 Acquired absence of other specified parts of digestive tract; Z20.828 Contact with and (suspected) exposure to other viral communicable diseases